=== PATIENT | female | born 1975 | race Caucasian/White ===

== ENCOUNTER 2018-08-16 12:45 | Emergency (ER) | payer BC, SELFPAY ==
[2018-08-16 12:57] VITALS: BP 154/94; PULSE 85; RESP 18; TEMP 37.2; O2SAT 99
--- NOTE | 2018-08-16 14:14 | W.ED.GENAD ---
Discharge Plan Disposition Patient Disposition: HOME Condition: Good Discharge Details Chief Complaint: RespSymp Clinical Impression: URI (upper respiratory infection) Primary Care Provider: NONE,NONE ED Provider: Amador Haji Home Meds and New Rx's Prescriptions: No Action ibuprofen 200 MG capsule 200 mg PO Q4H PRN RF: 0 Discharge Instructions Instructions: Upper Respiratory Infection (ED) Stand Alone Forms: Work Release Referrals: [facility] Emergency Dept. [Outside] - Return if symptoms worsen Discharge Data Discharge Date/Time-TO BE ENTERED AT DEPARTURE: 08/16/18 14:24 Medical Decision Making With normal exam and current symptoms my initial impression is she has early URI. i explained this and she decided against chest x-ray at this time. She plans to treat conservatively. If symptoms worsen she will return for evaluation otherwise with pcp. I advised to get plenty of rest and fluids. Work note provided. HPI General Date/Time Provider Initiated Documentation: 08/16/18 14:09. Limitations to Documentation: no limitations. Information obtained by: patient. History of Present Illness 43 year old F presents to the emergency department with the chief complaint of URI, HPI Narrative: 43 y/o female here with c/o cold symptoms for two days. She tells me for the last two days days she has been sneezing, coughing with worsening right ear pain. Declined x-ray. Related Data Home Medications Medication Instructions Recorded Confirmed ibuprofen 200 mg PO Q4H PRN tab-cap 05/19/13 08/16/18 Allergies Allergy/AdvReac Type Severity Reaction Status Date / Time laundry soap Allergy Skin Rash Uncoded 08/16/18 13:00 mushrooms Allergy Skin Rash Uncoded 08/16/18 13:00 hot pepers AdvReac Mild Nausea Uncoded 08/16/18 13:00 General Stated Complaint: RespSymp MAYA: 3 Review of Systems Constitutional Reports as per HPI Eyes Reports system reviewed and no additional complaints, except as docu ENT Reports otalgia (R) Cardiovascular Reports system reviewed and no additional complaints, except as docu Respiratory Reports cough and Reports other (sneezing) Gastrointestinal Reports system reviewed and no additional complaints, except as docu Genitourinary Reports system reviewed and no additional complaints, except as docu Musculoskeletal Reports system reviewed and no additional complaints, except as docu Integumentary/Breasts Reports system reviewed and no additional complaints, except as docu PFSH Social History Smoking/Tobacco Use Status: Never Exam Const General: cooperative and no acute distress Nutritional Appearance: obese HENMT Head: normal to inspection Ears: hearing grossly normal bilaterally, external ears normal and TM's normal bilaterally General nose exam: external nose normal and nares normal Face and sinus: normal facial exam Mouth: oral mucosae normal, lip normal, tongue normal, oropharynx normal and moist mucous membranes Throat: posterior oropharynx normal Eyes General: appearance normal, both eyes and all related structures Neck Neck: normal visual inspection, full ROM and no lymphadenopathy Resp Effort & Inspection: normal respiratory effort Auscultation: clear to auscultation bilaterally Cardio Rate: regular rate Rhythm: regular rhythm Skin General skin exam: no rashes or lesions noted Course Vital Signs Temperature 37.2 C 08/16/18 12:57 Pulse 85 08/16/18 12:57 Respiratory Rate 18 08/16/18 12:57 Blood Pressure 154/94 H 08/16/18 12:57 Pulse Oximetry 99 08/16/18 12:57 Temperature 37.2 C 08/16/18 12:57 Temperature Source Temporal Artery Scan 08/16/18 12:57 Pulse 85 08/16/18 12:57 Respiratory Rate 18 08/16/18 12:57 Respiratory Effort 08/16/18 12:57 Blood Pressure 154/94 H 08/16/18 12:57 Pulse Oximetry 99 08/16/18 12:57 Oxygen Delivery Method Room Air 08/16/18 12:57 Oxygen Flow Rate 0 08/16/18 12:57
--- NOTE | 2018-08-16 14:19 | ED.GENADUL_ITS ---
Discharge Plan Disposition Patient Disposition: HOME Condition: Good Discharge Details Chief Complaint: RespSymp Clinical Impression: URI (upper respiratory infection) Primary Care Provider: NONE,NONE ED Provider: Amador Haji Home Meds and New Rx's Prescriptions: No Action ibuprofen 200 MG capsule 200 mg PO Q4H PRN RF: 0 Discharge Instructions Instructions: Upper Respiratory Infection (ED) Stand Alone Forms: Work Release Referrals: [facility] Emergency Dept. [Outside] - Return if symptoms worsen Discharge Data Discharge Date/Time-TO BE ENTERED AT DEPARTURE: 08/16/18 14:24 Medical Decision Making With normal exam and current symptoms my initial impression is she has early URI. i explained this and she decided against chest x-ray at this time. She plans to treat conservatively. If symptoms worsen she will return for evaluation otherwise with pcp. I advised to get plenty of rest and fluids. Work note provided. HPI General Date/Time Provider Initiated Documentation: 08/16/18 14:09 . Limitations to Documentation: no limitations . Information obtained by: patient . History of Present Illness 43 year old F presents to the emergency department with the chief complaint of URI, HPI Narrative: 43 y/o female here with c/o cold symptoms for two days. She tells me for the last two days days she has been sneezing, coughing with worsening right ear pain. Declined x-ray. Related Data Home Medications Medication Instructions Recorded Confirmed ibuprofen 200 mg PO Q4H PRN tab-cap 05/19/13 08/16/18 Allergies Allergy/AdvReac Type Severity Reaction Status Date / Time laundry soap Allergy Skin Rash Uncoded 08/16/18 13:00 mushrooms Allergy Skin Rash Uncoded 08/16/18 13:00 hot pepers AdvReac Mild Nausea Uncoded 08/16/18 13:00 General Stated Complaint: RespSymp MAYA: 3 Review of Systems Constitutional Reports as per HPI Eyes Reports system reviewed and no additional complaints, except as docu ENT Reports otalgia (R) Cardiovascular Reports system reviewed and no additional complaints, except as docu Respiratory Reports cough and Reports other (sneezing) Gastrointestinal Reports system reviewed and no additional complaints, except as docu Genitourinary Reports system reviewed and no additional complaints, except as docu Musculoskeletal Reports system reviewed and no additional complaints, except as docu Integumentary/Breasts Reports system reviewed and no additional complaints, except as docu PFSH Social History Smoking/Tobacco Use Status: Never Exam Const General: cooperative and no acute distress Nutritional Appearance: obese HENMT Head: normal to inspection Ears: hearing grossly normal bilaterally, external ears normal and TM's normal bilaterally General nose exam: external nose normal and nares normal Face and sinus: normal facial exam Mouth: oral mucosae normal, lip normal, tongue normal, oropharynx normal and moist mucous membranes Throat: posterior oropharynx normal Eyes General: appearance normal, both eyes and all related structures Neck Neck: normal visual inspection, full ROM and no lymphadenopathy Resp Effort & Inspection: normal respiratory effort Auscultation: clear to auscultation bilaterally Cardio Rate: regular rate Rhythm: regular rhythm Skin General skin exam: no rashes or lesions noted Course Vital Signs Temperature 37.2 C 08/16/18 12:57 Pulse 85 08/16/18 12:57 Respiratory Rate 18 08/16/18 12:57 Blood Pressure 154/94 H 08/16/18 12:57 Pulse Oximetry 99 08/16/18 12:57 Temperature 37.2 C 08/16/18 12:57 Temperature Source Temporal Artery Scan 08/16/18 12:57 Pulse 85 08/16/18 12:57 Respiratory Rate 18 08/16/18 12:57 Respiratory Effort 08/16/18 12:57 Blood Pressure 154/94 H 08/16/18 12:57 Pulse Oximetry 99 08/16/18 12:57 Oxygen Delivery Method Room Air 08/16/18 12:57 Oxygen Flow Rate 0 08/16/18 12:57
== END 2018-08-16 14:24 | disposition home or self-care (01) ==
LOC: ER 14:25
PROVIDERS: Emergency Provider Nurse Practitioner Family
DX: J06.9 Acute upper respiratory infection, unspecified (principal)
CPT/HCPCS: 99282

== ENCOUNTER 2018-10-23 11:53 | Emergency (ER) | payer BC, SELFPAY ==
[2018-10-23 11:58] VITALS: BP 154/85; PULSE 83; RESP 15; TEMP 36.4; O2SAT 100
[2018-10-23 12:19] LABS: Bilirubin Negative (Negative); Blood Small (Negative); Clarity Clear; Glucose Negative (Negative); Ketones Negative (Negative); Leukocyte Esterase Negative (Negative); Nitrite Negative (Negative); Specific Gravity 1.025 (1.005-1.025); Urobilinogen 0.2 EU/dL (Up TO 0.2); pH 5.5 (5-8)
--- NOTE | 2018-10-23 12:32 | ED.GENADUL_ITS ---
Discharge Plan Disposition Patient Disposition: HOME Condition: Stable Discharge Details Chief Complaint: FlankPain Clinical Impression: Acute flank pain, Anemia Primary Care Provider: None,None ED Provider: Rosa Tello Home Meds and New Rx's Prescriptions: New polyethylene glycol 3350 [Miralax] 17 gram powder in packet 17 gm PO DAILY Qty: 7 RF: 0 ferrous sulfate [Iron (ferrous sulfate)] 325 mg (65 mg iron) tablet 325 mg PO DAILY Qty: 30 RF: 0 Continued ibuprofen 200 MG capsule 600 mg PO Q4H PRN RF: 0 Discharge Instructions Instructions: Iron Supplements (By mouth), Constipation (ED), Flank Pain (ED), Anemia (ED) Additional Instructions: Please return immediately to the emergency department if you develop any new or worsening symptoms or if you become otherwise concerned. It is extremely important that you make an appointment to seen by a primary care doctor within the next 1 week in follow-up for this visit. If you have any difficulty establishing this appointment please call [phone] Discharge Data Discharge Date/Time-TO BE ENTERED AT DEPARTURE: 10/23/18 16:45 Medical Decision Making Dalila Banegas is a 43 y/o woman with h/o kidney stones presenting to the emergency department with right flank pain. Pt appears comfortable, well and non-toxic appearing on exam. No abd or CVA TTP. Concern for renal stone vs pyelo vs other. Plan for screening labs, renal US. Pt declines pain meds. US reported by radiology as neg. Upon reassessment, Pt reporting pain somewhat worsened. Declines pain meds. Pt continues to look well, comfortable. Labs show anemia. Pt denies dark stool or melena, other bleeding. Denies SOB, lightheadedness, weakness, fatigue. Unclear etiology. No transfusion indicated at this time. I had a lengthy discussion with the re: definitive testing for renal stone with CT, risk of radiation and benefits. Pt is concerned that she may have a stone and would like to know, elects for CT. Given very well and comfortable appaerance and without abd pain, TTP, CT with IV contrast for r/o infarct, infection, other not indicated. CT reported by radiology as neg, large of stool in rectum. Pt reports that she is not having rectal pain, and has not felt constipated. Last BM this am. Plan for iron supplements, miralax, outpt f/u. Pt placed on care management list to establish PCP. Lengthy discussion with Pt re: RTED precautions and importance of outpt f/u. Medical Records Medical records reviewed: Yes I reviewed the patient's medical records. Imaging Data Radiologic Study: Attestation: I personally reviewed and interpreted this imaging study as follows: Radiologist's impression: ABDOMINAL AND RENAL ULTRASOUND: Routine examination. The aorta and IVC are unremarkable. The liver, gallbladder and bile ducts are unremarkable. The pancreas was not visualized due to overlying bowel. The kidneys are unremarkable. The urinary bladder prevoid volume is 122 cc. The bladder wall is smooth. No intraluminal masses are present. Postvoid urinary bladder volume was less than 5 cc. The spleen is unremarkable. No free fluid is seen in the abdomen. IMPRESSION: Negative abdominal and renal ultrasound. Lab Data Lab results reviewed: Yes I reviewed the patient's lab results. Laboratory Tests Range/Units 10/23/18 10/23/18 10/23/18 12:10 12:50 12:50 WBC (4.4-10.8) k/cumm 5.43 RBC (4.00-5.20) m/cumm 4.14 Hgb (12.0-15.5) g/dL 7.8 L Hct (36.0-46.0) % 28.9 L MCV (80-95) fL 69.8 L MCH (27.0-33.0) pg 18.8 L MCHC (32.0-36.0) g/dL 27.0 L RDW (11.7-14.6) % 16.6 H Plt Count (130-400) x1000/uL 376 MPV (8.0-11.0) fL 10.4 Immature Gran % 0.0 Neutrophils % 47.9 Lymphocytes % 39.0 Monocytes % 9.2 Eosinophils % 2.8 Basophils % 1.1 Absolute Neutrophils (1.2-6.7) k/cumm 2.60 Absolute Lymphocytes (1.2-3.4) k/cumm 2.12 Absolute Monocytes (0.11-0.7) k/cumm 0.50 Absolute Eosinophils (0.0-0.7) k/cumm 0.15 Absolute Basophils (0.0-0.2) k/cumm 0.06 Differential Comment Rbc morph reviewed RBC Morphology See below Polychromasia Present Hypochromasia 2+ Poikilocytosis 2+ Anisocytosis 1+ Microcytosis 2+ Sodium (136-145) mmol/L 141 Potassium (3.5-5.1) mmol/L 4.0 Chloride (98-107) mmol/L 105 Carbon Dioxide (21.0-32.0) mmol/L 28.3 Anion Gap (3-11) mmol/L 7.7 BUN (7-18) mg/dL 17 Creatinine (0.55-1.02) mg/dL 0.91 Estimated GFR/1.73 m2 (mL/min/1.73m2) >= 60.00 Glucose (70-100) mg/dL 88 Calcium (8.5-10.1) mg/dL 8.8 Total Bilirubin (0.2-1.0) mg/dL 0.2 AST (15-37) U/L 16 ALT (12-78) U/L 16 Alkaline Phosphatase (46-116) U/L 79 Total Protein (6.4-8.2) g/dL 8.2 Albumin (3.4-5.0) g/dL 3.4 Urine Color (Yellow) Yellow Urine Clarity Clear Urine pH (5-8) 5.5 Ur Specific [place] (1.005-1.025) 1.025 Urine Protein (Negative) mg/dL Negative Urine Ketones (Negative) mg/dL Negative Urine Blood (Negative) Small H Urine Nitrite (Negative) Negative Urine Bilirubin (Negative) Negative Urine Urobilinogen (Up TO 0.2) EU/dL 0.2 Ur Leukocyte Esterase (Negative) Negative Urine RBC (0-2) 3-5 H Urine WBC (0-5) HPF Negative Ur Epithelial Cells (Negative) HPF Many Urine Crystals (Negative) HPF Negative Urine Bacteria (Negative) HPF Few Urine Casts (Negative) LPF Negative Urine Mucus (Negative) Negative Urine Other (Negative) Negative Ur Culture Indicated? No/sq. contamination Urine Glucose (Negative) mg/dL Negative Path Cons Comment HPI General Mode of arrival: ambulatory . Date/Time Provider Initiated Documentation: 10/23/18 12:31 . Information obtained by: patient, RN notes reviewed and old records reviewed . HPI Narrative: Dalila Banegas is a 43-year-old woman with history of kidney stones presenting to the emergency department with right-sided flank pain. Pain has been ongoing for the last 2-3 days. Has been constant but waxing and waning in severity. Patient reports that she has had similar pain in the past with kidney stones, and has had 13 previous kidney stones. Patient reports that she has passed all of the stones without procedural intervention. She denies any other pain, fever, vomiting/diarrhea, shortness of breath, cough, rash, numbness/tingling/weakness, dysuria. No recent travel. Related Data Home Medications Medication Instructions Recorded Confirmed ibuprofen 600 mg PO Q4H PRN tab-cap 05/19/13 10/23/18 ferrous sulfate [Iron (ferrous 325 mg PO DAILY #30 tab 10/23/18 sulfate)] polyethylene glycol 3350 [Miralax] 17 gm PO DAILY #7 each 10/23/18 Previous Rx's Medication Instructions Recorded ferrous sulfate [Iron (ferrous 325 mg PO DAILY #30 tab 10/23/18 sulfate)] polyethylene glycol 3350 [Miralax] 17 gm PO DAILY #7 each 10/23/18 Allergies Allergy/AdvReac Type Severity Reaction Status Date / Time laundry soap Allergy Skin Rash Uncoded 10/23/18 12:04 mushrooms Allergy Skin Rash Uncoded 10/23/18 12:04 hot pepers AdvReac Mild Nausea Uncoded 10/23/18 12:04 General Stated Complaint: FlankPain MAYA: 3 Review of Systems Review of Systems Constitutional: denies fevers Eyes: denies eye pain ENT: denies facial pain, dental pain, sore throat Cardiovascular: denies chest pain, edema Respiratory: denies SOB, cough GI: denies abdominal pain, vomiting, diarrhea : reports flank pain, denies dysuria MSK: denies back pain, neck pain, arthralgias, myalgias Skin: denies rash Neuro: denies headaches, lightheadedness, weakness PFSH Social History Smoking/Tobacco Use Status: Never Exam Narrative Exam Narrative: Constitutional: well and [id number], pleasant, conversing normally HENT: head atraumatic, normocephalic normal inspection, mucous membranes moist Eyes: conjunctiva normal, sclera normal, pupils 3mm b/l Neck: no stridor, normal ROM, trachea midline Chest: normal inspection Resp: normal work of breathing, LCTAB Cardio: normal rate, normal rhythm, no murmur appreciated GI: abdomen soft, non-tender, non-distended, no CVA TTP b/l Back: normal inspection, no rash Skin: warm, dry, normal color, no rash Neuro: alert, not altered, grossly non-focal, normal tone Ext: no edema Psych: normal mood, normal affect, normal behavior Course Vital Signs Temperature 36.4 C L 10/23/18 11:58 Pulse 83 10/23/18 11:58 Respiratory Rate 15 10/23/18 11:58 Blood Pressure 154/85 H 10/23/18 11:58 Pulse Oximetry 100 10/23/18 11:58 Temperature 36.4 C L 10/23/18 11:58 Temperature Source Temporal Artery Scan 10/23/18 11:58 Pulse 83 10/23/18 11:58 Respiratory Rate 15 10/23/18 11:58 Respiratory Effort Non-Labored 10/23/18 12:03 Blood Pressure 154/85 H 10/23/18 11:58 Blood Pressure Position Sitting 10/23/18 11:58 Pulse Oximetry 100 10/23/18 11:58 Oxygen Delivery Method Room Air 10/23/18 11:58 Oxygen Flow Rate 0 10/23/18 11:58 Pain Level 5 10/23/18 12:05 Lab/Test Results Lab/Test Results: Laboratory Tests Range/Units 10/23/18 12:10 Urine Color (Yellow) Yellow Urine Clarity Clear Urine pH (5-8) 5.5 Ur Specific [place] (1.005-1.025) 1.025 Urine Protein (Negative) mg/dL Negative Urine Ketones (Negative) mg/dL Negative Urine Blood (Negative) Small H Urine Nitrite (Negative) Negative Urine Bilirubin (Negative) Negative Urine Urobilinogen (Up TO 0.2) EU/dL 0.2 Ur Leukocyte Esterase (Negative) Negative Urine Glucose (Negative) mg/dL Negative POC- Test(urine) Negative
[2018-10-23 12:33] LABS: Bacteria Few HPF (Negative); C & S Indicated? No/Sq. Contamination; Casts Negative LPF (Negative); Crystals Negative HPF (Negative); Epithelial Cells Many HPF (Negative); Mucus Negative (Negative); Other Cells Negative (Negative); WBC Negative HPF (0-5)
--- NOTE | 2018-10-23 13:20 | DI.US_ITS ---
SYMPTOMS/DIAGNOSIS: RIGHT FLANK PAIN, H/O KIDNEY STONES ABDOMINAL AND RENAL ULTRASOUND: Routine examination. The aorta and IVC are unremarkable. The liver, gallbladder and bile ducts are unremarkable. The pancreas was not visualized due to overlying bowel. The kidneys are unremarkable. The urinary bladder prevoid volume is 122 cc. The bladder wall is smooth. No intraluminal masses are present. Postvoid urinary bladder volume was less than 5 cc. The spleen is unremarkable. No free fluid is seen in the abdomen. IMPRESSION: Negative abdominal and renal ultrasound.
[2018-10-23 13:27] LABS: Absolute Basophil Count 0.06 k/cumm (0.0-0.2); Absolute Eosinophil Count 0.15 k/cumm (0.0-0.7); Absolute Lymphocyte Count 2.12 k/cumm (1.2-3.4); Basophils % 1.1; Eosinophils % 2.8; HCT 28.9 % (36.0-46.0); HGB 7.8 g/dL (12.0-15.5); Mean Corpuscular Hemoglobin 18.8 pg (27.0-33.0); Mean Corpuscular Volume 69.8 fL (80-95); Mean Platelet Volume 10.4 fL (8.0-11.0); Monocytes % 9.2; Neutrophils % 47.9; Platelet Count 376 x1000/uL (130-400); RBC 4.14 m/cumm (4.00-5.20); RBC Distribution Width 16.6 % (11.7-14.6); White Blood Cell Count 5.43 k/cumm (4.4-10.8)
[2018-10-23 13:43] LABS: ALT 16 U/L (12-78); AST 16 U/L (15-37); Albumin 3.4 g/dL (3.4-5.0); Alkaline Phosphatase 79 U/L (46-116); Anion Gap 7.7 mmol/L (3-11); BUN 17 mg/dL (7-18); Bilirubin, Total 0.2 mg/dL (0.2-1.0); CO2 28.3 mmol/L (21.0-32.0); CREATININE 0.91 mg/dL (0.55-1.02); Calcium 8.8 mg/dL (8.5-10.1); Chloride 105 mmol/L (98-107); Glucose 88 mg/dL (70-100); Sodium 141 mmol/L (136-145); Total Protein 8.2 g/dL (6.4-8.2)
[2018-10-23 13:53] LABS: Anisocytosis 1+; Diff Comment RBC Morph Reviewed; Hypochromasia 2+
[2018-10-23 13:54] LABS: Microcytosis 2+; Polychromasia Present
[2018-10-23 13:55] LABS: Poikilocytes 2+
[2018-10-23 15:27] VITALS: BP 136/83; PULSE 76; RESP 16; O2SAT 100
--- NOTE | 2018-10-23 15:34 | DI.CT_ITS ---
SYMPTOM/DIAGNOSIS: RT FLANK PAIN ABDOMEN AND PELVIC CT: CT scan of the abdomen and pelvis was performed according to the renal colic protocol. Comparison is made with 04/25/18. The visualized lung bases are clear. The lack of IV contrast does limit evaluation of the abdominal and pelvic organs. The unenhanced visualized portions of the liver, spleen, pancreas, gallbladder and bile ducts are unremarkable as are the adrenal glands. There is bilateral nephrolithiasis. No ureterolithiasis or hydronephrosis is seen. The urinary bladder is intact. The reproductive organs appear grossly unremarkable. The aorta is of normal caliber with mild atherosclerosis. No aneurysmal dilatation is seen. No significant abdominal or pelvic adenopathy, ascites or pneumoperitoneum is seen. There is a large amount of stool seen in the colon, particularly in the rectum. There is a question of mild thickening of the wall of the rectum. No evidence of bowel obstruction is seen. No findings to suggest acute appendicitis are present. No acute findings are seen in the bones. IMPRESSION: 1. Bilateral nephrolithiasis. No evidence of obstructive uropathy. 2. Large amount of stool in the colon, particularly the rectum suggesting possible fecal impaction. Stercoral colitis cannot be excluded.
--- NOTE | 2018-10-23 16:07 | DI.VRAD_ITS ---
EXAM: CT Abdomen and Pelvis Without Contrast EXAM DATE/TIME: 10/23/2018 3:57 PM CLINICAL HISTORY: 43 years old, female; Pain; Other: R flank pain TECHNIQUE: Axial computed tomography images of the abdomen and pelvis without contrast. Coronal and sagittal reformatted images were created and reviewed. COMPARISON: CT RENAL COLIC WO CONTRAST 04/25/2018 5:53 PM FINDINGS: Lower thorax: No acute findings. ABDOMEN: Liver: Incompletely included. Steatosis. Gallbladder and bile ducts: Normal. No calcified stones. No ductal dilation. Pancreas: Normal. No ductal dilation. Spleen: Normal. No splenomegaly. Adrenals: Normal. No mass. Kidneys and ureters: Bilateral renal calculi, no hydronephrosis or perinephric edema. Stomach and bowel: Moderate to large amount of fecal material in the rectum, no rectal wall thickening, or presacral edema. No obstruction.. Appendix: No evidence of appendicitis. PELVIS: Bladder: Unremarkable as visualized. Reproductive: Unremarkable as visualized. ABDOMEN and PELVIS: Intraperitoneal space: Normal. No free air. No significant fluid collection. Bones/joints: No acute fracture. No dislocation. Soft tissues: Unremarkable. Vasculature: Normal. No abdominal aortic aneurysm. Lymph nodes: Normal. No enlarged lymph nodes. IMPRESSION: Bilateral nephrolithiasis. Possible fecal impaction. Dictated and Authenticated by: Evangelist Morales MD. Ordering:ALISSA Lee MD
[2018-10-23 16:45] VITALS: BP 154/99; PULSE 85; RESP 16; O2SAT 100
--- NOTE | 2018-10-26 07:45 | PDOC.ERCMPRO ---
Care Management Progress Note 10/26-Dr. Brianna Tello requested assistance with a PCP (Patient has no PCP, [employer]) in one week for anemia and to establish care. Referral faxed to [facility] this morning.
== END 2018-10-23 16:45 | disposition home or self-care (01) ==
PROVIDERS: Emergency Provider Student in an Organized Health Care Education/Training Program
DX: R10.9 Unspecified abdominal pain (principal); D64.4 Congenital dyserythropoietic anemia; Z87.442 Personal history of urinary calculi
CPT/HCPCS: 36415; 76770; 80053; 81025; 99284; 74176; 76700; 81003; 81015; 85025

== ENCOUNTER 2018-11-29 20:06 | Emergency (ER) | payer BC, SELFPAY ==
[2018-11-29 20:21] VITALS: BP 174/93; PULSE 90; RESP 17; TEMP 36.3
--- NOTE | 2018-11-29 20:24 | W.ED.GENAD ---
Discharge Plan Disposition Patient Disposition: HOME Condition: Good Discharge Details Chief Complaint: FlankPain Clinical Impression: Urolithiasis Reason For Visit: left flank pain Primary Care Provider: None,None ED Provider: Yasir Shirley Home Meds and New Rx's Prescriptions: New acetaminophen [Mapap Extra Strength] 500 MG tablet 1,000 mg PO Q6H 5 Days Qty: 60 RF: 0 ibuprofen [Motrin IB] 200 MG tablet 600 mg PO Q6H 5 Days Qty: 60 RF: 0 tamsulosin [Flomax] 0.4 mg capsule 0.4 mg PO DAILY Qty: 5 RF: 0 cephalexin [Keflex] 500 mg capsule 500 mg PO QID 7 Days Qty: 28 RF: 0 No Action ibuprofen 200 MG capsule 600 mg PO Q4H PRN RF: 0 ferrous sulfate [Iron (ferrous sulfate)] 325 mg (65 mg iron) tablet 325 mg PO DAILY Qty: 30 RF: 0 Discharge Instructions Instructions: Kidney Stones (ED) Additional Instructions: Please take the medication as directed. If you notice any worsening of your symptoms, or any new symptoms such as vomiting, diarrhea, fever, chills, shortness of breath, chest pain, numbness, weakness, or fainting , please return immediately to the emergency department for reevaluation. Please follow up with tomorrow morning for reassessment and reevaluation. As always, it was a pleasure participating in your medical care today. Referrals: Jamari Alva MD [ [facility] STAFF PHYSICIAN] - Medical Decision Making This is a pleasant 43-year-old female comes in with left flank pain that started 2 hours ago she has associated urgency, her pain radiates to her groin she describes it as sharp. Signs and symptoms are concerning for urolithiasis. She was recently seen here a month ago, at that time there was noted to be bilateral kidney stones on CT scan. We will get a CT to reevaluate, control her pain, hydrate, evaluate for infection reassess. 10:54 PM The patient has complete resolution of her pain after NSAIDs and morphine. Laboratory workup shows no elevated white count, no significant left shift, no bandemia. Electrolytes are normal, renal function is stable. Lipase is negative. Urinalysis shows no signs of infection with negative nitrites and negative leuk esterase, 10-20 RBCs and an appropriate 5-10 WBCs. Many squamous epithelial cells. CT scan results have returned and demonstrate evidence of an obstructing 5.8 mm stone in the left distal ureter, however there is some inflammatory changes around the ureter in the left kidney which per the virtual radiologist could represent infectious etiology. I feel this both unlikely and clinically inconsistent with the patient's current clinical picture. I did contact Dr. Alva on discussed the case with him. He too feels that infection is unlikely based on the clinical picture. However because of the findings he does recommend antibiotics out of an abundance of precaution. We will give Rocephin here and then Keflex for home use, as well as close follow-up tomorrow morning with Dr. Alva. I have extensively reviewed the treatment plan and discharge instructions with the patient and their family. I have addressed all patient concerns at this time. The patient and family was made aware of what symptoms to monitor for that would warrant a return to the emergency department. Discussed the plan with the patient and family, they demonstrate verbal understanding and agreement with our assessment and plan at this time. FINDINGS: Lower thorax: No acute findings. ABDOMEN: Liver: Liver is stably enlarged measuring 23 cm. No acute liver pathology or gross focal lesions identified. Gallbladder and bile ducts: Normal. No calcified stones. No ductal dilation. Pancreas: Normal. No ductal dilation. Spleen: Normal. No splenomegaly. Adrenals: Normal. No mass. Kidneys and ureters: There is a 5.5 mm x 5.8 mm stone impacted in the distal left ureter causing stranding. There is also a small amount of left perirenal free fluid suggested, raising concern for possible calyceal rupture. Bilateral nephrolithiasis is again seen, stable. No evidence of right obstructive uropathy. Stomach and bowel: There is new wall thickening of the rectum and distal sigmoid. No other areas of segmental wall thickening are appreciated. No bowel obstruction. There is a large amount of fecal material in the rectal vault, however it has significantly improved from the reference exam. Appendix: No evidence of appendicitis. PELVIS: Bladder: Unremarkable as visualized. Reproductive: Unremarkable as visualized. ABDOMEN and PELVIS: Intraperitoneal space: Normal. No free air. No significant fluid collection. Bones/joints: No acute fracture. No dislocation. Soft tissues: Unremarkable. Vasculature: The vasculature demonstrates diffuse mild atherosclerotic calcification. Lymph nodes: Normal. No enlarged lymph nodes. IMPRESSION: 1. Moderate left obstructive uropathy caused by a 5.8 mm stone impacted in the distal left ureter. There is extensive inflammatory change surrounding the left ureter and left kidney, in which superimposed infection is difficult to exclude. There is also small amount of free fluid in the left perirenal space in which calyceal rupture is a possibility. 2. Stable bilateral nephrolithiasis. 3. New wall thickening of the rectum and distal sigmoid with improvement of prior rectal fecal impaction. Findings may be related to acute versus residual rectitis/sigmoiditis, most likely related to stercoral etiology although infectious/inflammatory process is not excluded. 4. Other stable/incidental findings as detailed above Thank you for allowing us to participate in the care of your patient. Dictated and Authenticated by: Dominic Gaines MD [facility] General Date/Time Provider Initiated Documentation: 11/29/18 20:07. [facility] Narrative: This is a pleasant 43-year-old female with no significant past medical history who presents today for evaluation of left flank pain. The pain started 2 hours ago, it started in her left back/flank, and now radiates towards her groin. She has an increased sense of urgency, but denies any dysuria, or hematuria. She has vomited twice secondary to pain. The second time she vomited was just after she took some ibuprofen for pain control. She vomited the pills back up. She denies any constipation, diarrhea, hematochezia, hematemesis, melena, acholic stool. She denies any fever. She denies any chest pain, leg pain, or vaginal discharge. No other complaints modifying factors at this time. Past surgical history is positive for . She denies any IV illicit drug use or pertinent family history. Related Data Home Medications Medication Instructions Recorded Confirmed ibuprofen 600 mg PO Q4H PRN tab-cap 05/19/13 11/29/18 ferrous sulfate [Iron (ferrous 325 mg PO DAILY #30 tab 10/23/18 sulfate)] acetaminophen [Mapap Extra 1,000 mg PO Q6H 5 Days #60 tab 11/29/18 Strength] cephalexin [Keflex] 500 mg PO QID 7 Days #28 cap 11/29/18 ibuprofen [Motrin Ib] 600 mg PO Q6H 5 Days #60 tab 11/29/18 tamsulosin [Flomax] 0.4 mg PO DAILY #5 cap 11/29/18 Previous Rx's Medication Instructions Recorded ferrous sulfate [Iron (ferrous 325 mg PO DAILY #30 tab 10/23/18 sulfate)] acetaminophen [Mapap Extra 1,000 mg PO Q6H 5 Days #60 tab 11/29/18 Strength] cephalexin [Keflex] 500 mg PO QID 7 Days #28 cap 11/29/18 ibuprofen [Motrin Ib] 600 mg PO Q6H 5 Days #60 tab 11/29/18 tamsulosin [Flomax] 0.4 mg PO DAILY #5 cap 11/29/18 Allergies Allergy/AdvReac Type Severity Reaction Status Date / Time laundry soap Allergy Skin Rash Uncoded 11/29/18 21:11 mushrooms Allergy Skin Rash Uncoded 11/29/18 21:11 hot pepers AdvReac Mild Nausea Uncoded 11/29/18 21:11 General MAYA: 3 Review of Systems Review of Systems All systems reviewed & are unremarkable except as noted in HPI and below PFSH Social History Smoking and Tabacco status: Never Exam Narrative Exam Narrative: 1.Const: Well-nourished, Well-developed, appearing stated age 2.Eyes: PERRL, no conjunctival injection, and symmetrical lids. 3.ENT: Atraumatic external nose and ears. Moist MM. Neck: Symmetric, trachea midline, No thyromegaly. 4.CVS: +S1/S2, No murmurs or gallops. Peripheral pulses 2+ and equal in all extremities. Brisk capillary refill in all extremities. 5.RESP: Unlabored respiratory effort. Clear to auscultation bilaterally. No wheezes rales or rhonchi 6.GI: Soft, Nontender/Nondistended, No hepatosplenomegaly. No guarding or rebound. Patient demonstrates left-sided flank pain on percussion. No abdominal tenderness on palpation. Mild pressure over the bladder. No signs of an acute surgical abdomen. 7.MSK: Normocephalic/Atraumatic, Extremities w/o deformity or ttp No cyanosis or clubbing, Normal movement of all extremities 8.Skin: Warm, Dry. No rashes or lesions. 9.Neuro: creative consultant II-XII grossly intact. Sensation grossly intact, no focal neurologic deficits. 10.Psych: (AAO) x3. Appropriate mood and affect
[2018-11-29] MEDS: Normal Saline 1,000 ML 1000 ML IV (20:50)
[2018-11-29] MEDS: Ketorolac 30 MG/ML VIAL 15 MG IVP (21:01)
[2018-11-29] MEDS: Ondansetron 4 MG/2 ML VIAL IVP (21:02)
[2018-11-29] MEDS: MORPHine 10 MG/ML VIAL 4 MG IVP (21:08)
[2018-11-29 21:11] LABS: Abs Immature Grans 0.03 k/cumm (0.0-0.09); HCT 32.8 % (36.0-46.0); Mean Corp. HGB Concentration 27.4 g/dL (32.0-36.0); Mean Corpuscular Hemoglobin 20.5 pg (27.0-33.0); Mean Corpuscular Volume 74.9 fL (80-95); Mean Platelet Volume 9.9 fL (8.0-11.0); Platelet Count 252 x1000/uL (130-400); RBC 4.38 m/cumm (4.00-5.20); RBC Distribution Width 20.8 % (11.7-14.6)
[2018-11-29 21:23] LABS: ALT 18 U/L (12-78); AST 19 U/L (15-37); Albumin 3.3 g/dL (3.4-5.0); Alkaline Phosphatase 79 U/L (46-116); Anion Gap 7.8 mmol/L (3-11); BUN 16 mg/dL (7-18); Bilirubin, Total 0.2 mg/dL (0.2-1.0); CO2 29.2 mmol/L (21.0-32.0); CREATININE 1.18 mg/dL (0.55-1.02); Calcium 8.7 mg/dL (8.5-10.1); Chloride 105 mmol/L (98-107); Estimated GFR 49.99 (mL/min/1.73m2); Glucose 129 mg/dL (70-100); Lipase 110 U/L (73-393); Potassium 3.7 mmol/L (3.5-5.1); Sodium 142 mmol/L (136-145); Total Protein 8.2 g/dL (6.4-8.2)
[2018-11-29 21:33] LABS: Absolute Lymphocyte Count 2.32 k/cumm (1.2-3.4); Absolute Monocyte Count 0.81 k/cumm (0.11-0.7); Absolute Neutrophil Count 6.87 k/cumm (1.2-6.7)
[2018-11-29 21:34] LABS: Anisocytosis 2+; Diff Comment Manual Differential; Hypochromasia 2+; Microcytosis 3+
[2018-11-29 21:35] LABS: Poikilocytes 2+
--- NOTE | 2018-11-29 21:35 | DI.CT_ITS ---
SYMPTOM/DIAGNOSIS: LEFT FLANK PAIN, H/O STONES RENAL COLIC CT: Comparison is 10/23/18. No acute abnormality seen in the lung bases. Unenhanced visualized portions of the liver, spleen, pancreas, gallbladder, bile ducts and adrenal glands are unremarkable. There is a 6 mm stone at the left ureteral vesicular junction causing moderate hydronephrosis. There is fluid seen around the left kidney which may represent calyceal rupture. There are bilateral nonobstructing stones. The urinary bladder is intact. The reproductive organs are unremarkable. The bowel shows no evidence of obstruction. There is thickening of the wall of the rectum and the distal sigmoid colon which may represent a mild proctitis/colitis. The remainder of the bowel is unremarkable. The aorta is of normal caliber. No significant abdominal or pelvic adenopathy, ascites or pneumoperitoneum is seen. No acute abnormality is seen in the bones. IMPRESSION: 1. 6 mm left UVJ calculus causing moderate hydronephrosis 2. Bilateral nephrolithiasis 3. Thickening of the wall of the rectum and distal sigmoid colon which may represent proctitis/sigmoiditis.
[2018-11-29 21:37] VITALS: BP 122/79; PULSE 88; RESP 18; TEMP 36.7; O2SAT 94
[2018-11-29] MEDS: Acetaminophen 500 MG TAB 1000 MG PO (21:37)
[2018-11-29 21:39] LABS: Bilirubin Negative (Negative); Blood Moderate (Negative); Clarity Sl Cloudy; Glucose Negative (Negative); Ketones Trace mg/dL (Negative); Leukocyte Esterase Negative (Negative); Nitrite Negative (Negative); Specific Gravity 1.025 (1.005-1.025); Urobilinogen 0.2 EU/dL (Up TO 0.2)
[2018-11-29 22:00] LABS: Bacteria Rare HPF (Negative); C & S Indicated? No/Sq. Contamination; Casts 0-2 Hyaline LPF (Negative); Epithelial Cells Many HPF (Negative); Mucus Trace (Negative)
[2018-11-29] MEDS: Tamsulosin 0.4 MG CAPCR PO (22:00)
--- NOTE | 2018-11-29 22:13 | DI.VRAD_ITS ---
EXAM: CT Abdomen and Pelvis Without Contrast EXAM DATE/TIME: 11/29/2018 8:28 PM CLINICAL HISTORY: 43 years old, female; Pain; Other: L flank pain; Prior surgery; Surgery type: 2 c-sections; Patient HX: L flank pain for 2 hours TECHNIQUE: Axial computed tomography images of the abdomen and pelvis without contrast. All CT scans at this facility use at least one of these dose optimization techniques: automated exposure control; mA and/or kV adjustment per patient size (includes targeted exams where dose is matched to clinical indication); or iterative reconstruction. Coronal and sagittal reformatted images were created and reviewed. COMPARISON: CT renal colic wo 10/23/2018 3:53 PM FINDINGS: Lower thorax: No acute findings. ABDOMEN: Liver: Liver is stably enlarged measuring 23 cm. No acute liver pathology or gross focal lesions identified. Gallbladder and bile ducts: Normal. No calcified stones. No ductal dilation. Pancreas: Normal. No ductal dilation. Spleen: Normal. No splenomegaly. Adrenals: Normal. No mass. Kidneys and ureters: There is a 5.5 mm x 5.8 mm stone impacted in the distal left ureter causing moderate upstream hydroureteronephrosis with associated extensive perinephric and periureteric stranding. There is also a small amount of left perirenal free fluid suggested, raising concern for possible calyceal rupture. Bilateral nephrolithiasis is again seen, stable. No evidence of right obstructive uropathy. Stomach and bowel: There is new wall thickening of the rectum and distal sigmoid. No other areas of segmental wall thickening are appreciated. No bowel obstruction. There is a large amount of fecal material in the rectal vault, however it has significantly improved from the reference exam. Appendix: No evidence of appendicitis. PELVIS: Bladder: Unremarkable as visualized. Reproductive: Unremarkable as visualized. ABDOMEN and PELVIS: Intraperitoneal space: Normal. No free air. No significant fluid collection. Bones/joints: No acute fracture. No dislocation. Soft tissues: Unremarkable. Vasculature: The vasculature demonstrates diffuse mild atherosclerotic calcification. Lymph nodes: Normal. No enlarged lymph nodes. IMPRESSION: 1. Moderate left obstructive uropathy caused by a 5.8 mm stone impacted in the distal left ureter. There is extensive inflammatory change surrounding the left ureter and left kidney, in which superimposed infection is difficult to exclude. There is also small amount of free fluid in the left perirenal space in which calyceal rupture is a possibility. 2. Stable bilateral nephrolithiasis. 3. New wall thickening of the rectum and distal sigmoid with improvement of prior rectal fecal impaction. Findings may be related to acute versus residual rectitis/sigmoiditis, most likely related to stercoral etiology although infectious/inflammatory process is not excluded. 4. Other stable/incidental findings as detailed above Dictated and Authenticated by: Dominic Kruger MD. Ordering:DARINEL Cooley MD
[2018-11-29 23:24] VITALS: BP 130/77; PULSE 85; RESP 16; TEMP 36.4; O2SAT 97
--- NOTE | 2018-11-30 08:58 | PDOC.ERCMPRO ---
Care Management Progress Note 11/30-Dr. Shirley requested assistance with a urology f/u this am for kidney stone, ? mild infection. Dr. Shirley consulted with Dr. Alva and Dr. Alva has requested this f/u. Referral faxed to Urology this am.
== END 2018-11-29 23:49 | disposition home or self-care (01) ==
PROVIDERS: Emergency Provider Student in an Organized Health Care Education/Training Program
DX: N20.1 Calculus of ureter (principal)
CPT/HCPCS: 36415; 80053; 81025; 83690; 96361; 96365; 96375; 99284; 74176; 81003; 81015; 85025; J1885; J2270; J2405

== ENCOUNTER 2018-12-23 15:23 | Outpatient (CLI) | payer BC, SELFPAY ==
--- NOTE | 2018-12-23 16:15 | DI.US_ITS ---
SYMPTOM/DIAGNOSIS: MODERATE HYDRONEPHROSIS WITH STONE, ? STONE PASSED, N13.30 RENAL ULTRASOUND: Comparison is made with 10/23/18. Comparison CT scan is 11/29/18. The right kidney measures 10.8 cm. in length. There is an echogenic focus seen in the lower pole measuring .4 cm. in length. No hydronephrosis or solid mass is seen. Normal blood flow is seen to the right kidney. The left kidney measures 11.6 cm. long. No definite renal masses, calculi or obstruction is identified. There is normal blood flow to the left kidney. The prevoid urinary bladder volume is 103 cc's. Both ureteral jets were visualized. Postvoid urinary bladder volume is 14 cc's. IMPRESSION: 1. Right nephrolithiasis. 2. No evidence of hydronephrosis.
== END 2018-12-23 15:43 ==
PROVIDERS: Visit Provider Nurse Practitioner Gerontology
DX: N20.0 Calculus of kidney (principal); N13.30 Unspecified hydronephrosis
CPT/HCPCS: 76770

== ENCOUNTER 2019-02-14 09:19 | Emergency (ER) | payer BC, SELFPAY ==
[2019-02-14 09:21] VITALS: BP 142/96; PULSE 96; RESP 16; TEMP 36.5; O2SAT 97
--- NOTE | 2019-02-14 09:24 | W.ED.GENAD ---
Discharge Plan Disposition Patient Disposition: HOME Condition: Stable Discharge Details Chief Complaint: RespSymp Clinical Impression: URI (upper respiratory infection) Primary Care Provider: None,None ED Provider: Evelyne Goldman Home Meds and New Rx's Prescriptions: New benzonatate [Tessalon Perles] 100 mg capsule 100 mg PO TID PRN (Reason: cough) Qty: 14 RF: 0 Continued ibuprofen 200 MG capsule 600 mg PO Q4H PRN RF: 0 ferrous sulfate [Iron (ferrous sulfate)] 325 mg (65 mg iron) tablet 325 mg PO DAILY Qty: 30 RF: 0 Discharge Instructions Instructions: Upper Respiratory Infection (ED) Additional Instructions: Encourage hydration. Tylenol and/or Ibuprofen as needed for discomfort. Tessalon perles as prescribed for cough. I have asked our care coordinators to help you get a primary care physician. They will call you with appointment. If you develop fevers/chills, difficulty breathing, shortness of breath, inability to stay hydrated or other new/worsening symptoms please seek care urgently once again. Medical Decision Making Patient presenting with c/c of cough and URI x 9 days. Endorses bilateral ear discomfort, worse on the right than left. No discharge. Has had tubes placed x 13 per patient report. Endorses congestion, mild sore throat. No SOB. Discomfort with cough circumfrencially. No pain with exertion or at rest. Cough largely non productive. No abdominal pain. Reports her stool has been softer than typical and darker, near black. On exam, she appears nontoxic. No cough was noted. Lungs are clear on exam. Normal cardiac exam. Bilatereal TM are scared. 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 She has had multiple surgeries, this is likely chronic. No bulging or erythema, no discharge to either TM. Do not believe she has acute otitis media. Plan to obtain cxr as cough has worsened. Patient reported darkened stools, rectal exam preformed, rectal exam WNL, heme negative. CXR reviewed by radiologist: FINDINGS: Lungs: Unremarkable. No consolidation. Pleural space: Unremarkable. No pleural effusion. No pneumothorax. Heart/Mediastinum: The cardiomediastinal silhouette is fairly stable in appearance. Bones/joints: Unremarkable. IMPRESSION: No evidence for acute pulmonary disease. Discussed findings with the patient. Advised that with her URI symptoms this is likely viral etiology. Enocuraged hydration. Advised on home remedies and OTC medications that may help with symptomatic management. Juan prescribe Tessalon Perles to help with cough. She was given strict return precautions. Does not have a PCP, have asked mall plant caretaker to help with this. All of her questions and concerns were addressed, she is in agreement with this plan. HPI General Mode of arrival: ambulatory. Date/Time Provider Initiated Documentation: 02/14/19 09:20. Limitations to Documentation: no limitations. Information obtained by: patient and RN notes reviewed. History of Present Illness 43 year old F presents to the emergency department with the chief complaint of cough, described as moderate, with intensity rated at 5. Quality is described as aching (with cough), and is localized to the chest and abdomen. Patient reports no radiation. Patient started experiencing this day(s) (9) and it has been constant. other things that improve symptom(s), (not coughing) Other factors that worsen symptoms (coughing) . Patient notes cough; denies confusion, diaphoresis, fever/chills, headaches, loss of appetite, nausea/vomiting, rash, shortness of breath and syncope. Patient did receive the following treatments prior to arrival, none Related Data Home Medications Medication Instructions Recorded Confirmed ibuprofen 600 mg PO Q4H PRN tab-cap 05/19/13 12/24/18 ferrous sulfate [Iron (ferrous 325 mg PO DAILY #30 tab 10/23/18 02/14/19 sulfate)] benzonatate [Tessalon Perles] 100 mg PO TID PRN #14 cap 02/14/19 Previous Rx's Medication Instructions Recorded ferrous sulfate [Iron (ferrous 325 mg PO DAILY #30 tab 10/23/18 sulfate)] benzonatate [Tessalon Perles] 100 mg PO TID PRN #14 cap 02/14/19 Allergies Allergy/AdvReac Type Severity Reaction Status Date / Time laundry soap Allergy Skin Rash Uncoded 02/14/19 09:24 mushrooms Allergy Skin Rash Uncoded 02/14/19 09:24 hot pepers AdvReac Mild Nausea Uncoded 02/14/19 09:24 General Stated Complaint: RespSymp MAYA: 3 Review of Systems Constitutional Reports as per HPI, Denies chills, Denies fever(s), Denies headache(s) and Denies poor appetite Eyes Reports as per HPI, Denies eye discharge and Denies irritation ENT Reports as per HPI, Denies change in voice, Denies ear discharge, Reports otalgia, Denies headache(s), Denies hoarseness, Reports nasal congestion, Reports nasal discharge, Reports sore throat and Denies throat swelling Cardiovascular Reports as per HPI, Denies chest pain, Denies dyspnea and Denies dyspnea on exertion Respiratory Reports as per HPI, Reports cough, Denies hemoptysis, Denies pain with cough, Denies dyspnea, Denies dyspnea on exertion, Denies stridor and Denies wheezing Gastrointestinal Reports as per HPI, Denies abdominal pain, Reports loose stools (has noted stools to be softer than typical and almost black), Denies nausea and Denies vomiting Genitourinary Denies system reviewed and no additional complaints, except as docu (denies change in urinary habits) and Denies hematuria Integumentary/Breasts Reports as per HPI and Denies rash Neurologic Reports as per HPI and Denies headache(s) Allergic/Immunologic Denies throat swelling and Denies wheezing [facility] Social History Smoking/Tobacco Use Status: Never Drug use: Never Do you feel safe at home: Yes Do you feel safe in your relationship?: Yes Exam Const General: cooperative, healthy appearing, comfortable, no acute distress, well developed and well groomed Nutritional Appearance: average body habitus and well nourished Orientation: alert and awake [facility] Head: normal to inspection, normocephalic and atraumatic Ears: hearing grossly normal bilaterally, external ears normal and TM abnormal (bilateral scaring, has rupture on the left, does not appear acute) General nose exam: external nose normal and nares normal Face and sinus: normal facial exam, sinuses nontender and face symmetric Mouth: oral mucosae normal, lip normal, tongue normal, oropharynx normal and moist mucous membranes Teeth and gingiva: dentition normal Throat: posterior oropharynx normal, tonsils normal and uvula midline Eyes General: appearance normal, both eyes and all related structures Neck Neck: normal visual inspection, full ROM, no lymphadenopathy and no meningeal signs Resp Effort & Inspection: normal respiratory effort, able to speak in complete sentences and no respiratory distress Auscultation: clear to auscultation bilaterally, no rales, no rhonchi and no wheezes Cardio Rate: regular rate Rhythm: regular rhythm Heart Sounds: S1 normal and S2 normal GI Inspection: normal to inspection Rectal Exam - female: visual inspection normal, normal sphincter tone, No abnormal stool, No fecal impaction, No fissure and heme negative stool Skin General skin exam: no rashes or lesions noted Neuro General: alert and awake Cognition: normal cognition Speech: speech normal Gait: normal gait Extrem General: normal to inspection, normal capillary refill, no pedal edema, no calf tenderness and normal gait Psych Appearance: grossly normal and well kempt Mental Status: mental status grossly normal Speech and Movement: speech and movement normal Course Vital Signs Temperature 36.5 C 02/14/19 09:21 Pulse 96 H 02/14/19 09:21 Respiratory Rate 16 02/14/19 09:21 Pulse Oximetry 97 02/14/19 09:21 Temperature 36.5 C 02/14/19 09:21 Temperature Source Temporal Artery Scan 02/14/19 09:21 Pulse 96 H 02/14/19 09:21 Respiratory Rate 16 02/14/19 09:21 Blood Pressure Position Sitting 02/14/19 09:21 Pulse Oximetry 97 02/14/19 09:21 Oxygen Delivery Method Room Air 02/14/19 09:21 Oxygen Flow Rate 0 02/14/19 09:21 Pain Level 5 02/14/19 09:21
--- NOTE | 2019-02-14 09:47 | ED.GENADUL_ITS ---
Discharge Plan Disposition Patient Disposition: HOME Condition: Stable Discharge Details Chief Complaint: RespSymp Clinical Impression: URI (upper respiratory infection) Primary Care Provider: None,None ED Provider: Evelyne Goldman Home Meds and New Rx's Prescriptions: New benzonatate [Tessalon Perles] 100 mg capsule 100 mg PO TID PRN (Reason: cough) Qty: 14 RF: 0 Continued ibuprofen 200 MG capsule 600 mg PO Q4H PRN RF: 0 ferrous sulfate [Iron (ferrous sulfate)] 325 mg (65 mg iron) tablet 325 mg PO DAILY Qty: 30 RF: 0 Discharge Instructions Instructions: Upper Respiratory Infection (ED) Additional Instructions: Encourage hydration. Tylenol and/or Ibuprofen as needed for discomfort. Tessalon perles as prescribed for cough. I have asked our care coordinators to help you get a primary care physician. They will call you with appointment. If you develop fevers/chills, difficulty breathing, shortness of breath, inability to stay hydrated or other new/worsening symptoms please seek care urgently once again. Medical Decision Making Patient presenting with c/c of cough and URI x 9 days. Endorses bilateral ear discomfort, worse on the right than left. No discharge. Has had tubes placed x 13 per patient report. Endorses congestion, mild sore throat. No SOB. Discomfort with cough circumfrencially. No pain with exertion or at rest. Cough largely non productive. No abdominal pain. Reports her stool has been softer than typical and darker, near black. On exam, she appears nontoxic. No cough was noted. Lungs are clear on exam. Normal cardiac exam. Bilatereal TM are scared. 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 She has had multiple surgeries, this is likely chronic. No bulging or erythema, no discharge to either TM. Do not believe she has acute otitis media. Plan to obtain cxr as cough has worsened. Patient reported darkened stools, rectal exam preformed, rectal exam WNL, heme negative. CXR reviewed by radiologist: FINDINGS: Lungs: Unremarkable. No consolidation. Pleural space: Unremarkable. No pleural effusion. No pneumothorax. Heart/Mediastinum: The cardiomediastinal silhouette is fairly stable in appearance. Bones/joints: Unremarkable. IMPRESSION: No evidence for acute pulmonary disease. Discussed findings with the patient. Advised that with her URI symptoms this is likely viral etiology. Enocuraged hydration. Advised on home remedies and OTC medications that may help with symptomatic management. Juan prescribe Tessalon Perles to help with cough. She was given strict return precautions. Does not have a PCP, have asked child care coordinator to help with this. All of her questions and concerns were addressed, she is in agreement with this plan. HPI General Mode of arrival: ambulatory . Date/Time Provider Initiated Documentation: 02/14/19 09:20 . Limitations to Documentation: no limitations . Information obtained by: patient and RN notes reviewed . History of Present Illness 43 year old F presents to the emergency department with the chief complaint of cough, described as moderate, with intensity rated at 5. Quality is described as aching (with cough), and is localized to the chest and abdomen. Patient reports no radiation. Patient started experiencing this day(s) (9) and it has been constant. other things that improve symptom(s), (not coughing) Other factors that worsen symptoms (coughing) . Patient notes cough; denies confusion, diaphoresis, fever/chills, headaches, loss of appetite, nausea/vomiting, rash, shortness of breath and syncope. Patient did receive the following treatments prior to arrival, none Related Data Home Medications Medication Instructions Recorded Confirmed ibuprofen 600 mg PO Q4H PRN tab-cap 05/19/13 12/24/18 ferrous sulfate [Iron (ferrous 325 mg PO DAILY #30 tab 10/23/18 02/14/19 sulfate)] benzonatate [Tessalon Perles] 100 mg PO TID PRN #14 cap 02/14/19 Previous Rx's Medication Instructions Recorded ferrous sulfate [Iron (ferrous 325 mg PO DAILY #30 tab 10/23/18 sulfate)] benzonatate [Tessalon Perles] 100 mg PO TID PRN #14 cap 02/14/19 Allergies Allergy/AdvReac Type Severity Reaction Status Date / Time laundry soap Allergy Skin Rash Uncoded 02/14/19 09:24 mushrooms Allergy Skin Rash Uncoded 02/14/19 09:24 hot pepers AdvReac Mild Nausea Uncoded 02/14/19 09:24 General Stated Complaint: RespSymp MAYA: 3 Review of Systems Constitutional Reports as per HPI, Denies chills, Denies fever(s), Denies headache(s) and Denies poor appetite Eyes Reports as per HPI, Denies eye discharge and Denies irritation ENT Reports as per HPI, Denies change in voice, Denies ear discharge, Reports otalgia, Denies headache(s), Denies hoarseness, Reports nasal congestion, Reports nasal discharge, Reports sore throat and Denies throat swelling Cardiovascular Reports as per HPI, Denies chest pain, Denies dyspnea and Denies dyspnea on exertion Respiratory Reports as per HPI, Reports cough, Denies hemoptysis, Denies pain with cough, Denies dyspnea, Denies dyspnea on exertion, Denies stridor and Denies wheezing Gastrointestinal Reports as per HPI, Denies abdominal pain, Reports loose stools (has noted stools to be softer than typical and almost black), Denies nausea and Denies vomiting Genitourinary Denies system reviewed and no additional complaints, except as docu (denies change in urinary habits) and Denies hematuria Integumentary/Breasts Reports as per HPI and Denies rash Neurologic Reports as per HPI and Denies headache(s) Allergic/Immunologic Denies throat swelling and Denies wheezing [facility] Social History Smoking/Tobacco Use Status: Never Drug use: Never Do you feel safe at home: Yes Do you feel safe in your relationship?: Yes Exam Const General: cooperative, healthy appearing, comfortable, no acute distress, well developed and well groomed Nutritional Appearance: average body habitus and well nourished Orientation: alert and awake [facility] Head: normal to inspection, normocephalic and atraumatic Ears: hearing grossly normal bilaterally, external ears normal and TM abnormal (bilateral scaring, has rupture on the left, does not appear acute) General nose exam: external nose normal and nares normal Face and sinus: normal facial exam, sinuses nontender and face symmetric Mouth: oral mucosae normal, lip normal, tongue normal, oropharynx normal and tomi st mucous membranes Teeth and gingiva: dentition normal Throat: posterior oropharynx normal, tonsils normal and uvula midline Eyes General: appearance normal, both eyes and all related structures Neck Neck: normal visual inspection, full ROM, no lymphadenopathy and no meningeal signs Resp Effort & Inspection: normal respiratory effort, able to speak in complete sentences and no respiratory distress Auscultation: clear to auscultation bilaterally, no rales, no rhonchi and no wheezes Cardio Rate: regular rate Rhythm: regular rhythm Heart Sounds: S1 normal and S2 normal GI Inspection: normal to inspection Rectal Exam - female: visual inspection normal, normal sphincter tone, No abnormal stool, No fecal impaction, No fissure and heme negative stool Skin General skin exam: no rashes or lesions noted Neuro General: alert and awake Cognition: normal cognition Speech: speech normal Gait: normal gait Extrem General: normal to inspection, normal capillary refill, no pedal edema, no calf tenderness and normal gait Psych Appearance: grossly normal and well kempt Mental Status: mental status grossly normal Speech and Movement: speech and movement normal Course Vital Signs Temperature 36.5 C 02/14/19 09:21 Pulse 96 H 02/14/19 09:21 Respiratory Rate 16 02/14/19 09:21 Pulse Oximetry 97 02/14/19 09:21 Temperature 36.5 C 02/14/19 09:21 Temperature Source Temporal Artery Scan 02/14/19 09:21 Pulse 96 H 02/14/19 09:21 Respiratory Rate 16 02/14/19 09:21 Blood Pressure Position Sitting 02/14/19 09:21 Pulse Oximetry 97 02/14/19 09:21 Oxygen Delivery Method Room Air 02/14/19 09:21 Oxygen Flow Rate 0 02/14/19 09:21 Pain Level 5 02/14/19 09:21
--- NOTE | 2019-02-14 09:56 | DI.RAD_ITS ---
SYMPTOMS/DIAGNOSIS: COUGH PA AND LATERAL CHEST: Comparison 11/10/14. The heart is normal in size. The lungs are clear. The mediastinal structures and pleura appear intact. CONCLUSION: Normal chest.
--- NOTE | 2019-02-14 10:39 | DI.VRAD_ITS ---
EXAM: XR Chest, 2 Views EXAM DATE/TIME: 02/14/2019 10:00 AM CLINICAL HISTORY: 43 years old, female; Signs and symptoms; Cough TECHNIQUE: Imaging protocol: XR of the chest, 2 views. COMPARISON: CR CHEST 2 VIEWS PA,LAT 11/10/2014 1:33 PM (report not provided) FINDINGS: Lungs: Unremarkable. No consolidation. Pleural space: Unremarkable. No pleural effusion. No pneumothorax. Heart/Mediastinum: The cardiomediastinal silhouette is fairly stable in appearance. Bones/joints: Unremarkable. IMPRESSION: No evidence for acute pulmonary disease. Dictated and Authenticated by: Amador Hurley MD. Ordering:ANÍBAL Stubbs MD
== END 2019-02-14 10:55 | disposition home or self-care (01) ==
PROVIDERS: Emergency Provider Physician Assistant
DX: J06.9 Acute upper respiratory infection, unspecified (principal)
CPT/HCPCS: 81025; 99283; 71046; 81003

== ENCOUNTER 2019-05-16 21:07 | Emergency (ER) | payer BC, SELFPAY ==
[2019-05-16 21:12] VITALS: BP 187/98; PULSE 77; RESP 18; TEMP 36.2; O2SAT 100
[2019-05-16] MEDS: Normal Saline 1,000 ML 1000 ML IV (21:30)
[2019-05-16 21:51] LABS: Abs Immature Grans 0.02 k/cumm (0.0-0.09); Absolute Basophil Count 0.04 k/cumm (0.0-0.2); Absolute Eosinophil Count 0.18 k/cumm (0.0-0.7); Absolute Lymphocyte Count 3.19 k/cumm (1.2-3.4); Absolute Monocyte Count 0.88 k/cumm (0.11-0.7); Absolute Neutrophil Count 5.81 k/cumm (1.2-6.7); Basophils % 0.4; Eosinophils % 1.8; HCT 35.2 % (36.0-46.0); HGB 10.6 g/dL (12.0-15.5); Immature Grans % 0.2; Lymphocytes % 31.5; Mean Corp. HGB Concentration 30.1 g/dL (32.0-36.0); Mean Corpuscular Hemoglobin 23.5 pg (27.0-33.0); Mean Platelet Volume 10.8 fL (8.0-11.0); Monocytes % 8.7; Neutrophils % 57.4; Platelet Count 286 x1000/uL (130-400); RBC 4.51 m/cumm (4.00-5.20); White Blood Cell Count 10.12 k/cumm (4.4-10.8)
[2019-05-16] MEDS: Ketorolac 30 MG/ML VIAL IVP (21:55)
[2019-05-16] MEDS: Ondansetron 4 MG/2 ML VIAL IVP (21:57)
--- NOTE | 2019-05-16 22:06 | W.ED.GENAD ---
Discharge Plan Disposition Patient Disposition: HOME Condition: Stable Discharge Details Chief Complaint: FlankPain Clinical Impression: Right ureteral stone Primary Care Provider: None,None ED Provider: Jhonatan Herrera Home Meds and New Rx's Prescriptions: New tamsulosin [Flomax] 0.4 mg capsule 0.4 mg PO DAILY Qty: 14 RF: 0 ondansetron 4 mg tablet,disintegrating 4 mg PO Q8H PRN (Reason: nausea and vomiting) Qty: 10 RF: 0 Continued ibuprofen 200 MG capsule 600 mg PO Q4H PRN RF: 0 ferrous sulfate [Iron (ferrous sulfate)] 325 mg (65 mg iron) tablet 325 mg PO DAILY Qty: 30 RF: 0 benzonatate [Tessalon Perles] 100 mg capsule 100 mg PO TID PRN (Reason: cough) Qty: 14 RF: 0 Discharge Instructions Instructions: Kidney Stones (ED), How to Strain Your Urine (ED) Additional Instructions: You may continue to take 600 mg of ibuprofen along with 1000 mg of acetaminophen every 6 hours as needed for pain control. Return immediately to the emergency department for any new or significant worsening of symptoms, fever chills, or persistent vomiting as she may need reassessment and further testing. Otherwise follow-up with urology. Stand Alone Forms: Work Release Referrals: Jamari Alva MD [ [facility] STAFF PHYSICIAN] - 1 week (Please call urology office for arrangement of follow-up appointment preferably in the next 1 to 2 weeks or as directed by them) Discharge Data Discharge Date/Time-TO BE ENTERED AT DEPARTURE: 05/17/19 00:00 Medical Decision Making Patient presenting the emergency department for flank pain for the past hour. History of kidney stone. Physical exam unremarkable. Plan to check labs and CT image Review of labs show no leukocytosis, anemia which is at baseline, CMP which is nondiagnostic and urine which shows significant amount of blood. CT imaging and reviewed radiology interpretation shows a 4.5 mm obstructing calculus just beyond the ureteropelvic junction within the right proximal ureter. There is mild to moderate hydroureter along with hydronephrosis. There is a 2 mm nonobstructing calculus in the left midpole kidney. Given non-worrisome size of stone I do feel that patient is able to be discharged home. Patient was reassessed and states significant improvement of nausea and pain. Patient was placed on Flomax and Zofran for nausea control. Otherwise patient states that previous episode she has been able to control her pain with [id number] pain medication and recommendations were given. Return precautions discussed. After discussion of diagnosis and plan of care patient has no further needs, questions, or concerns and states clear understanding to return to the emergency department for any worsening symptoms. HPI General Mode of arrival: ambulatory. Date/Time Provider Initiated Documentation: 05/16/19 21:08. Limitations to Documentation: no limitations. Information obtained by: patient and RN notes reviewed. History of Present Illness 44 year old F presents to the emergency department with the chief complaint of right flank pain, described as severe and similar to prior episodes, with intensity rated at 10. Quality is described as sharp, and is localized to the abdomen and right. Patient flank. Patient started experiencing this hour(s) (1) and it has been constant. No relieving factors improve symptom(s), No exacerbating factors reported . Patient did receive the following treatments prior to arrival, none Related Data Home Medications Medication Instructions Recorded Confirmed ibuprofen 600 mg PO Q4H PRN tab-cap 05/19/13 12/24/18 ferrous sulfate [Iron (ferrous 325 mg PO DAILY #30 tab 10/23/18 02/14/19 sulfate)] benzonatate [Tessalon Perles] 100 mg PO TID PRN #14 cap 02/14/19 ondansetron 4 mg PO Q8H PRN #10 tab 05/16/19 tamsulosin [Flomax] 0.4 mg PO DAILY #14 cap 05/16/19 Previous Rx's Medication Instructions Recorded ferrous sulfate [Iron (ferrous 325 mg PO DAILY #30 tab 10/23/18 sulfate)] benzonatate [Tessalon Perles] 100 mg PO TID PRN #14 cap 02/14/19 ondansetron 4 mg PO Q8H PRN #10 tab 05/16/19 tamsulosin [Flomax] 0.4 mg PO DAILY #14 cap 05/16/19 Allergies Allergy/AdvReac Type Severity Reaction Status Date / Time laundry soap Allergy Skin Rash Uncoded 02/14/19 09:24 mushrooms Allergy Skin Rash Uncoded 02/14/19 09:24 hot pepers AdvReac Mild Nausea Uncoded 02/14/19 09:24 General Stated Complaint: FlankPain MAYA: 3 Review of Systems Constitutional Denies chills and Denies fever(s) Cardiovascular Denies chest pain and Denies dyspnea Respiratory Denies cough and Denies dyspnea Gastrointestinal Denies abdominal pain, Denies melena, Denies change in bowel habits, Denies constipation, Denies diarrhea, Reports nausea and Denies vomiting Genitourinary Reports as per HPI, Denies hematuria, Denies dysuria, Reports flank pain and Denies urinary incontinence Musculoskeletal Denies back pain Integumentary/Breasts Denies rash [facility] Social History Smoking/Tobacco Use Status: Never Drug use: Never Do you feel safe at home: Yes Do you feel safe in your relationship?: Yes Exam Const General: cooperative Orientation: alert, awake and oriented x3 Resp Effort & Inspection: normal respiratory effort and able to speak in complete sentences Auscultation: clear to auscultation bilaterally Cardio Rate: regular rate Rhythm: regular rhythm Heart Sounds: S1 normal and S2 normal GI Palpation: soft, no hepatosplenomegaly, not firm, no guarding, no masses, no pulsatile masses, not rigid, no splenomegaly and nontender Auscultation: normal bowel sounds Back/Spine/Pelvis Back: no CVA tenderness Thoracic/Lumbar Spine: No paraspinal tenderness, No thoracic spinal tenderness and No lumbar spinal tenderness Neuro General: alert, awake, oriented x3, gait normal and moves all extremities Course Vital Signs Temperature 36.2 C L 05/16/19 21:12 Pulse 77 05/16/19 21:12 Respiratory Rate 18 05/16/19 21:12 Blood Pressure 187/98 H 05/16/19 21:12 Pulse Oximetry 100 05/16/19 21:12 Temperature 36.2 C L 05/16/19 21:12 Temperature Source Tympanic 05/16/19 21:12 Pulse 77 05/16/19 21:12 Respiratory Rate 18 05/16/19 21:12 Respiratory Effort 05/16/19 21:28 Blood Pressure 187/98 H 05/16/19 21:12 Blood Pressure Position Sitting 05/16/19 21:12 Pulse Oximetry 100 05/16/19 21:12 Oxygen Delivery Method Room Air 05/16/19 21:12 Oxygen Flow Rate 0 05/16/19 21:12 Pain Level 10 05/16/19 21:12 Lab/Test Results Lab/Test Results: Laboratory Tests Range/Units 05/16/19 21:40 WBC (4.4-10.8) k/cumm 10.12 RBC (4.00-5.20) m/cumm 4.51 Hgb (12.0-15.5) g/dL 10.6 L Hct (36.0-46.0) % 35.2 L MCV (80-95) fL 78.0 L MCH (27.0-33.0) pg 23.5 L MCHC (32.0-36.0) g/dL 30.1 L RDW (11.7-14.6) % 15.0 H Plt Count (130-400) x1000/uL 286 MPV (8.0-11.0) fL 10.8 Immature Gran % 0.2 Neutrophils % 57.4 Lymphocytes % 31.5 Monocytes % 8.7 Eosinophils % 1.8 Basophils % 0.4 Absolute Neutrophils (1.2-6.7) k/cumm 5.81 Absolute Lymphocytes (1.2-3.4) k/cumm 3.19 Absolute Monocytes (0.11-0.7) k/cumm 0.88 H Absolute Eosinophils (0.0-0.7) k/cumm 0.18 Absolute Basophils (0.0-0.2) k/cumm 0.04
[2019-05-16 22:12] LABS: ALT 16 U/L (12-78); AST 13 U/L (15-37); Albumin 3.4 g/dL (3.4-5.0); Alkaline Phosphatase 84 U/L (46-116); Anion Gap 9.4 mmol/L (3-11); BUN 18 mg/dL (7-18); Bilirubin, Total 0.2 mg/dL (0.2-1.0); CO2 27.6 mmol/L (21.0-32.0); CREATININE 1.02 mg/dL (0.55-1.02); Calcium 8.8 mg/dL (8.5-10.1); Chloride 104 mmol/L (98-107); Estimated GFR 58.87 (mL/min/1.73m2); Glucose 133 mg/dL (70-100); Potassium 3.5 mmol/L (3.5-5.1); Sodium 141 mmol/L (136-145); Total Protein 8.3 g/dL (6.4-8.2)
[2019-05-16 22:17] LABS: Bilirubin Negative (Negative); Blood Large (Negative); Clarity Sl Cloudy (Clear); Glucose Negative (Negative); Ketones Trace mg/dL (Negative); Leukocyte Esterase Negative (Negative); Nitrite Negative (Negative); Specific Gravity 1.025 (1.005-1.025); Urobilinogen 0.2 EU/dL (Up TO 0.2); pH 6.5 (5-8)
[2019-05-16 22:27] LABS: Bacteria Negative HPF (Negative); C & S Indicated? No; Casts Negative LPF (Negative); Crystals Negative HPF (Negative); Epithelial Cells Moderate HPF (Negative); Mucus Negative (Negative); RBC >50 (0-2); WBC Negative HPF (0-5)
--- NOTE | 2019-05-16 22:45 | DI.CT_ITS ---
SYMPTOMS/DIAGNOSIS: RT FLANK PAIN RENAL COLIC CT: Routine examination. Comparison 11/29/18. There is a 5 mm stone in the proximal right ureter causing moderate right hydroureter and hydronephrosis. Perinephritic stranding is seen around the right kidney. Nonobstructing stones are seen in the left kidney. No ureterolithiasis is seen. The urinary bladder is intact and incompletely distended. The reproductive organs are unremarkable. There is stool within the rectosigmoid colon. There is thickening of the wall of the rectosigmoid colon which is unchanged. Stercoral proctitis can not be excluded. The remainder of the bowel shows no acute abnormality. The unenhanced visualized portions of the liver, spleen, pancreas, gallbladder, bile ducts and adrenal glands are unremarkable. The aorta is of normal caliber. IMPRESSION: 1. 5 mm stone in the proximal right ureter causing right hydronephrosis and right hydroureter. 2. Left nephrolithiasis.
--- NOTE | 2019-05-16 23:24 | DI.VRAD_ITS ---
EXAM: CT Abdomen and Pelvis Without Contrast EXAM DATE/TIME: 05/16/2019 9:45 PM CLINICAL HISTORY: 44 years old, female; Prior surgery; Surgery date: 6+ months; Surgery type: C section x 2; Patient HX: Right flank pain HX of multiple stones TECHNIQUE: Imaging protocol: Axial computed tomography images of the abdomen and pelvis without contrast. Coronal and sagittal reformatted images were created and reviewed. Radiation optimization: All CT scans at this facility use at least one of these dose optimization techniques: automated exposure control; mA and/or kV adjustment per patient size (includes targeted exams where dose is matched to clinical indication); or iterative reconstruction. COMPARISON: CT renal colic wo 11/29/2018 9:29 PM FINDINGS: Lungs: The lungs are otherwise normal. Pleural space: There is no evidence of pneumothorax. There are no pleural effusions present. Heart: The cardiac structures are normal. Probable small pericardial effusion present. Liver: Normal. No mass. Gallbladder and bile ducts: Normal. No calcified stones. No ductal dilation. Pancreas: Normal. No ductal dilation. Spleen: Normal. No splenomegaly. Adrenals: Normal. No mass. Kidneys and ureters: There is a 4.5 mm obstructing calculus seen just beyond the ureteropelvic junction within the proximal right ureter. There is moderate right hydroureter. There is moderate right hydronephrosis. There is moderate to severe perinephric and proximal periureteric soft tissue stranding. 2 mm nonobstructing calculus seen at the mid pole left kidney. No evidence of obstruction the left ureter or collecting systems. Stomach and bowel: The stomach is filled with ingested material. There is moderate increased colonic fecal content. The colon is mildly distended. These findings suggest a moderate degree of constipation. Clinical correlation recommended. There is mild persistent thickening of the rectosigmoid colon. Appendix: A normal appendix is identified. There is no evidence of distention or periappendiceal inflammation to suggest appendicitis. Intraperitoneal space: There is no free intraperitoneal air. There is no evidence of free intraperitoneal or pelvic fluid. Vasculature: Normal. No abdominal aortic aneurysm. Lymph nodes: There is no evidence of lymphadenopathy. Bladder: There is nonspecific bladder wall thickening. This may be related to incomplete bladder filling. Reproductive: The uterus is normal. Bones/joints: No acute fracture. No dislocation. Soft tissues: Unremarkable. IMPRESSION: 1. There is a 4.5 mm obstructing calculus seen just beyond the ureteropelvic junction within the proximal right ureter. There is moderate right hydroureter. There is moderate right hydronephrosis. There is moderate to severe perinephric and proximal periureteric soft tissue stranding. 2. 2 mm nonobstructing calculus seen at the mid pole left kidney. Dictated and Authenticated by: Mars Mccullough MD. Ordering:SALMA Israel MD
[2019-05-16] MEDS: Ondansetron O.D.T. 4 MG TABEF PO (23:58)
[2019-05-16] MEDS: Tamsulosin 0.4 MG CAPCR PO (23:58)
[2019-05-16 23:59] VITALS: BP 164/80; PULSE 79; RESP 18; TEMP 36.5; O2SAT 99
--- NOTE | 2019-05-17 07:21 | NUR.NOTE ---
referral faxed to specialty clinic, Urology.Nursing Note:
== END 2019-05-17 | disposition home or self-care (01) ==
PROVIDERS: Emergency Provider Nurse Practitioner Family
DX: N13.2 Hydronephrosis with renal and ureteral calculous obstruction (principal); N13.4 Hydroureter; Z87.442 Personal history of urinary calculi
CPT/HCPCS: 36415; 80053; 81025; 96361; 96374; 96375; 99284; 74176; 81003; 81015; 85025; J1885; J2405

== ENCOUNTER 2019-06-07 09:55 | Day surgery (SDC) | payer BC, SELFPAY ==
[2019-06-07] VITALS (13 sets, daily range): BP systolic 132–149; BP diastolic 67–108; PULSE 88–100; RESP 10–20; TEMP 36–36.6; O2SAT 93–99
[2019-06-07] MEDS: Lactated Ringers 1,000 ML 80 ML IV (11:21)
--- NOTE | 2019-06-07 12:13 | DI.RAD_ITS ---
SYMPTOM/DIAGNOSIS: RT URETERAL STONE OR RETROGRADE: Fluoroscopy Time: 24.6 seconds C-arm fluoroscopy was utilized by Dr. Alva during cystoscopy and attempted removal of right ureteral stone. Hard copies appear to show a right ureteral stent or catheter in position.
[2019-06-07] MEDS: Lidocaine 2% Jelly 6 ML SYR (12:49)
[2019-06-07] MEDS: Omnipaque 300 MG/ML 50 ML BTL (12:52)
--- NOTE | 2019-06-07 13:36 | W.PM.DSUDISC ---
Discharge Plan Disposition Patient Disposition: HOME Condition: Stable Discharge Details Reason For Visit: (R) URETERAL STONE Attending Provider: Jamari Alva Primary Care Provider: None,None Home Meds and New Rx's Prescriptions: No Action tramadol 50 mg tablet 50 mg PO Q6H PRN (Reason: pain) Qty: 12 RF: 0 ibuprofen 200 MG capsule 600 mg PO Q4H PRN RF: 0 ferrous sulfate [Iron (ferrous sulfate)] 325 mg (65 mg iron) tablet 325 mg PO DAILY Qty: 30 RF: 0 tamsulosin [Flomax] 0.4 mg capsule 0.4 mg PO DAILY Qty: 14 RF: 0 ondansetron 4 mg tablet,disintegrating 4 mg PO Q8H PRN (Reason: nausea and vomiting) Qty: 10 RF: 0 Discharge Instructions Additional Instructions: No need to strain urine Pt has stent with string still attached - she will need to come to our office on or Friday to have her stent removed Pt will need F/U appt in 4 to 6 weeks - she will need a renal US on the day of her appt Activity:: Activity as Tolerated Shower/Bathe:: 24 hours Diet:: As Tolerated Discharge Orders Discharge Orders: Discharge Order (Routine); Ordered 06/07/19 Ordered By: Jamari Alva DS: Diagnosis Discharge Diagnosis (1) Right ureteral calculus: Status: Acute
--- NOTE | 2019-06-07 14:28 | ROE_ITS ---
REPORT OF OPERATIVE PROCEDURE DATE OF PROCEDURE June 07, 2019 PREOPERATIVE DIAGNOSIS Right ureteral stone. POSTOPERATIVE DIAGNOSIS Right ureteral stone. PROCEDURES Cystoscopy, right retrograde pyelogram, right rigid ureteroscopy with Holmium laser lithotripsy and s tone extraction, insert right ureteral stent. SURGEON Jamari Alva M.D. ANESTHESIA General. COMPLICATIONS None. ESTIMATED BLOOD LOSS Minimal. HISTORY This is a 44-year-old woman who has a history of multiple previous kidney stones. She has never requi red surgery, but currently she has a right proximal ureteral stone that has not progressed, that she has been symptomatic with pain and nausea. We gave her conservative management through the weekend with a plan on moving towards surgery today i f she was unable to advance her stone. We have been attempting to obtain prior authorization for her surgery. In spite of prolonged wait jonathan es on the phone, both on Friday and Friday, we have been unable to reach a member of her insurance te am. We are proceeding with the surgery without the prior authorization as we are deeming it more urge nt/emergent given her prolonged symptoms. DESCRIPTION OF PROCEDURE The patient was brought to the Operating Room on 06/07/2019. After successful induction of general an esthesia, she was placed in the dorsal lithotomy position. Her genitalia was prepped and draped ster ilely. A #22-Urdu rigid cystoscope was passed through the urethra into the bladder. The bladder was inspec ronaldo with a 30-degree lens. The right ureteral orifice was visualized. The orifice was cannulated with a #6-Urdu access cathete r. A retrograde film was obtained by injecting Omnipaque through the access catheter under fluorosco pic guidance. There did appear to be a filling defect in the mid ureter. We then elected to use the semi-rigid uret eroscope. A Glidewire was advanced through the access catheter and positioned with the proximal end curled in t he upper pole calyx. The access catheter was removed, as was the cystoscope. The semi-rigid ureteroscope was then passed t hrough the urethra into the bladder. We were able to negotiation the scope into the left ureteral harmony fice and advance the scope to the proximal ureter. We actually visualized a stone in the proximal ureter, not in the mid ureter. This stone had some marjorie ma surrounding it. We treated the stone with a 365 micron Holmium laser fiber. Initially, we utilized a dusting technique. We then switched over to a fragmentation technique. As the stone fragmented, we were able to grasp multiple fragments in a Zero Tip stone basket and removed the fragments, and sent them to pathology. We re-inserted the ureteroscope and no additional large stone fragments were seen. We elected to plac e a 4.8 Urdu variable length stent postoperatively. We slid the stent over the indwelling wire. We positioned the stent with the proximal end in the upper pole calyx and the distal end in the bladder. We left the safety string in place and brought the string through the urethra. We then tucked the st ring into the patient's vaginal cavity. The stent can be removed in two to three days. The patient tolerated this procedure well. There were no complications.
[2019-06-07] MEDS: fentaNYL 100 MCG/2 ML VIAL IVP (14:45)
[2019-06-07] MEDS: Droperidol 5 MG/2 ML VIAL 0.625 MG IVP (15:25)
[2019-06-15 11:22] LABS: Source: Right Ureter
[2019-06-15 11:23] LABS: Comment See Comments
== END 2019-06-07 17:09 | disposition home or self-care (01) ==
PROVIDERS: Visit Provider Urology
PROC: (CPT 52356; principal; 2019-06-07 11:15)
DX: N20.1 Calculus of ureter (principal); Z87.442 Personal history of urinary calculi
CPT/HCPCS: 52356; 74420; 82365; J0690; J1100; J1790; J2405; J3010; Q9967

== ENCOUNTER 2019-07-16 01:20 | Outpatient (CLI) | payer BC, SELFPAY ==
--- NOTE | 2019-07-16 08:43 | DI.US_ITS ---
EXAM: US RENAL CLINICAL HISTORY: rt ureteral calculus, N20.1, r/o hydronephrosis after ureteroscopy. TECHNIQUE: Ultrasound performed using standard protocol. COMPARISON: US renal from 12/23/2018 FINDINGS: Kidneys are not optimally visualized but appear grossly unremarkable with no evidence of renal mass h ydronephrosis or nephrolithiasis. Pre and post void appearance of the bladder is unremarkable with prevoid bladder volume 109 cc and po stvoid bladder volume 1 3 cc. Ureteral jets not visualized. IMPRESSION: Limited study. No gross renal abnormality. No evidence of hydronephrosis.
== END 2019-07-16 01:40 ==
PROVIDERS: Visit Provider Urology
DX: N20.1 Calculus of ureter (principal)
CPT/HCPCS: 76770

== ENCOUNTER 2019-10-31 11:14 | Emergency (ER) | payer BC, SELFPAY ==
[2019-10-31 11:17] VITALS: BP 150/97; PULSE 102; RESP 18; TEMP 36.5; O2SAT 98
--- NOTE | 2019-10-31 11:31 | W.ED.GENAD ---
Discharge Plan Disposition Patient Disposition: HOME Condition: Stable Discharge Details Chief Complaint: DentalOral Clinical Impression: Dental infection, Dental caries Primary Care Provider: None,None ED Provider: Myah Horn Home Meds and New Rx's Prescriptions: New penicillin V potassium 500 mg tablet 500 mg PO QID 7 Days Qty: 28 RF: 0 Continued ibuprofen 200 MG capsule 600 mg PO Q4H PRN RF: 0 acetaminophen 325 mg Tablet 975 mg PO ONCE PRNRF: 0 ferrous sulfate [Iron (ferrous sulfate)] 325 mg (65 mg iron) tablet 325 mg PO DAILY Qty: 30 RF: 0 Discharge Instructions Instructions: Dental Caries (ED) Additional Instructions: Take the antibiotics until finished. Alternate tylenol and motrin as needed and directed for pain. Call a dentist tomorrow morning to schedule a follow-up appointment for reevaluation. Return immediately to the emergency department if you develop any worsening or concerning symptoms such as fever, worsening pain, redness, swelling. Discharge Data Discharge Date/Time-TO BE ENTERED AT DEPARTURE: 10/31/19 11:40 Discharge Physician: Myah Horn Medical Decision Making 44-year-old female presents with left lower dental pain since yesterday. Denies fever. Denies any known injury or recent antibiotics. Poor dentition throughout. Multiple dental caries and missing teeth. There is tenderness to palpation left lower anterior tooth with minimal surrounding edema and erythema. No abscess noted. Normal oropharynx. No submandibular swelling, trismus or drooling. We will treat with penicillin. Patient given dental follow-up list. Usual and customary return precautions given prior to discharge. HPI General Mode of arrival: ambulatory. Date/Time Provider Initiated Documentation: 10/31/19 11:15. Limitations to Documentation: no limitations. Information obtained by: patient. History of Present Illness 44 year old F presents to the emergency department with the chief complaint of Left lower dental pain, Patient started experiencing this day(s) (1) and it has been constant. Medication improves symptom(s), (She has been alternating Tylenol and Motrin with some relief) No exacerbating factors reported . Patient notes no other symptoms.. Patient did receive the following treatments prior to arrival, none Related Data Home Medications Medication Instructions Recorded Confirmed ibuprofen 600 mg PO Q4H PRN tab-cap 05/19/13 10/31/19 ferrous sulfate [Iron (ferrous 325 mg PO DAILY #30 tab 01/04/19 01/12/20 sulfate)] acetaminophen 975 mg PO ONCE PRN 10/31/19 10/31/19 penicillin V potassium 500 mg PO QID 7 Days #28 tab 10/31/19 Previous Rx's Medication Instructions Recorded ferrous sulfate [Iron (ferrous 325 mg PO DAILY #30 tab 10/23/18 sulfate)] penicillin V potassium 500 mg PO QID 7 Days #28 tab 10/31/19 Allergies Allergy/AdvReac Type Severity Reaction Status Date / Time laundry soap Allergy Skin Rash Uncoded 10/31/19 11:23 mushrooms Allergy Skin Rash Uncoded 10/31/19 11:23 hot pepers AdvReac Mild Nausea Uncoded 10/31/19 11:23 General Stated Complaint: DentalOral MAYA: 4 Review of Systems All systems reviewed & are unremarkable except as noted in HPI and below Constitutional Constitutional: Reports as per HPI, Denies chills and Denies fever(s) Eyes Eyes: Denies blurry vision ENT Ears, Nose, Mouth, and Throat: Reports dental pain, Denies dizziness, Denies sore throat and Denies throat swelling Cardiovascular Cardiovascular: Denies chest pain and Denies dyspnea Respiratory Respiratory: Denies cough and Denies dyspnea Gastrointestinal Gastrointestinal: Denies abdominal pain, Denies diarrhea and Denies vomiting Genitourinary Genitourinary: Denies hematuria and Denies dysuria Musculoskeletal Musculoskeletal: Denies back pain and Denies numbness Integumentary/Breasts Skin/Breast: Denies lesions and Denies rash Neurologic Neurologic: Denies dizziness, Denies focal weakness and Denies numbness Allergic/Immunologic Allergic/Immunologic: Denies throat swelling [facility] Medical History Kidney stone (Chronic) Obesity (Chronic) Right ureteral calculus (Acute) Surgical History History of section (Chronic) History of cystoscopy (Acute) kidney stones Family History Other Diabetes Social History Smoking/Tobacco Use Status: Never Alcohol Intake: never Drug use: Never Do you feel safe at home: Yes Do you feel safe in your relationship?: Yes Exam Const General: cooperative, healthy appearing and no acute distress HENMT Head: normal to inspection Ears: hearing grossly normal bilaterally, external ears normal and TM's normal bilaterally General nose exam: external nose normal Mouth: oral mucosae normal Teeth and gingiva: poor dentition Teeth image: 1. Tenderness to palpation of left lower anterior tooth. Multiple dental caries and missing teeth throughout. Minimal surrounding edema and erythema of mucosa. No abscess noted. Throat: posterior oropharynx normal and uvula midline Eyes General: appearance normal, both eyes and all related structures Neck Neck: normal visual inspection Resp Effort & Inspection: normal respiratory effort and able to speak in complete sentences Cardio Rate: regular rate Skin General skin exam: no rashes or lesions noted Neuro General: alert, awake and oriented x3 Motor: muscle tone normal throughout Extrem General: normal to inspection and full ROM Psych Appearance: grossly normal Affect: normal affect Course Vital Signs Vital signs: Vital Signs Temperature 97.7 F 10/31/19 11:17 Pulse 102 H 10/31/19 11:17 Respiratory Rate 18 10/31/19 11:17 Blood Pressure 150/97 H 10/31/19 11:17 Pulse Oximetry 98 10/31/19 11:17 Temperature 97.7 F 10/31/19 11:17 Temperature Source Temporal Artery Scan 10/31/19 11:17 Pulse 102 H 10/31/19 11:17 Respiratory Rate 18 10/31/19 11:17 Respiratory Effort Non-Labored 10/31/19 11:22 Blood Pressure 150/97 H 10/31/19 11:17 Blood Pressure Position Sitting 10/31/19 11:17 Pulse Oximetry 98 10/31/19 11:17 Oxygen Delivery Method Room Air 10/31/19 11:17 Oxygen Flow Rate 0 10/31/19 11:17 Pain Level 7 10/31/19 11:25
== END 2019-10-31 11:40 | disposition home or self-care (01) ==
PROVIDERS: Emergency Provider Physician Assistant
DX: R68.84 Jaw pain (principal); K04.7 Periapical abscess without sinus
CPT/HCPCS: 99283

== ENCOUNTER 2020-08-24 07:17 | Emergency (ER) | payer BC, SELFPAY ==
[2020-08-24 07:20] VITALS: BP 179/80; PULSE 107; RESP 16; TEMP 36.1; O2SAT 100
--- NOTE | 2020-08-24 07:22 | ED.GENADUL_ITS ---
Discharge Plan Disposition Patient Disposition: HOME Condition: Stable Discharge Details Clinical Impression: Pain, dental Primary Care Provider: None,None ED Provider: Amador Henry Home Meds and New Rx's Prescriptions: New amoxicillin-pot clavulanate [Augmentin] 875-125 mg tablet 1 tab PO BID Qty: 14 RF: 0 Continued ibuprofen 200 MG capsule 600 mg PO Q4H PRN RF: 0 acetaminophen 325 mg Tablet 975 mg PO ONCE PRNRF: 0 ferrous sulfate [Iron (ferrous sulfate)] 325 mg (65 mg iron) tablet 325 mg PO DAILY Qty: 30 RF: 0 Discharge Instructions Instructions: Toothache (ED) Additional Instructions: follow up with your dentist as soon as possible if you have fevers, severe worsening pain or difficulty swallowing liquids return to the emergency department Medical Decision Making 45 yo female comes in with worsening right upper tooth pain and intermittent radiation to the right ear. Denies fevers, dyspnea or difficulty swallowing. Denies throat pain, and has no submandibular swelling on exam, no pain over hyoid or restrcited neck movements and normal posterior pharynx with midline uvula, no findings to suggest ludwigs, rpa, police captain or epiglotitis. Both tm's and external auditory canals normal as are external mastoids. She has numerous eroded teeth and eroded right upper molar surrounding gum is erythematous with pain to palpation, no visible abscess. Likely dental infection. Will d/c home on augmentin and advised to f/u with dentist and return precautions given Differential Diagnosis Differential Diagnosis: caries, abscess, pulpitis HPI General Mode of arrival: ambulatory . Date/Time Provider Initiated Documentation: 08/24/20 07:18 . Limitations to Documentation: no limitations . Information obtained by: patient . History of Present Illness 45 year old F presents to the emergency department with the chief complaint of right upper tooth pain, described as moderate, Patient started experiencing this day(s) (4) and it has been constant. No relieving factors improve symptom(s), No exacerbating factors reported . Related Data Home Medications Medication Instructions Recorded Confirmed ibuprofen 600 mg PO Q4H PRN tab-cap 05/19/13 10/31/19 ferrous sulfate [Iron (ferrous 325 mg PO DAILY #30 tab 10/23/18 10/31/19 sulfate)] acetaminophen 975 mg PO ONCE PRN 10/31/19 10/31/19 amoxicillin-pot clavulanate 1 tab PO BID #14 tab 08/24/20 [Augmentin] Previous Rx's Medication Instructions Recorded ferrous sulfate [Iron (ferrous 325 mg PO DAILY #30 tab 10/23/18 sulfate)] amoxicillin-pot clavulanate 1 tab PO BID #14 tab 08/24/20 [Augmentin] Allergies Allergy/AdvReac Type Severity Reaction Status Date / Time laundry soap Allergy Skin Rash Uncoded 08/24/20 07:25 mushrooms Allergy Skin Rash Uncoded 08/24/20 07:25 hot pepers AdvReac Mild Nausea Uncoded 08/24/20 07:25 General MAYA: 4 Review of Systems All systems reviewed & are unremarkable except as noted in HPI and below Constitutional Constitutional: Denies chills, Denies fever(s) and Denies weakness ENT Ears, Nose, Mouth, and Throat: Denies change in voice Cardiovascular Cardiovascular: Denies chest pain and Denies dyspnea Respiratory Respiratory: Denies cough and Denies dyspnea Gastrointestinal Gastrointestinal: Denies abdominal pain, Denies nausea and Denies vomiting Integumentary/Breasts Skin/Breast: Denies rash Neurologic Neurologic: Denies weakness [facility] Medical History (Updated 08/24/20 @ 07:22 by Amador Henry MD) Kidney stone Obesity Right ureteral calculus Surgical History History of section History of cystoscopy kidney stones Family History Other Diabetes Social History Smoking/Tobacco Use Status: Never Smoking risk assessment performed?: Yes Alcohol Intake: never Drug use: Never Do you feel safe at home: Yes Do you feel safe in your relationship?: Yes Exam Const General: no acute distress Orientation: alert HENMT Head: normal to inspection Ears: external ears normal General nose exam: external nose normal Mouth: moist mucous membranes Eyes General: appearance normal, both eyes and all related structures Neck Neck: normal visual inspection Resp Effort & Inspection: normal respiratory effort and able to speak in complete sentences Cardio Rate: regular rate Skin General skin exam: no rashes or lesions noted Neuro General: patient alert and patient oriented x3 Extrem General: normal to inspection Psych Mental Status: mental status grossly normal
== END 2020-08-24 07:27 | disposition home or self-care (01) ==
LOC: ER 07:31
PROVIDERS: Emergency Provider Emergency Medicine
DX: R68.84 Jaw pain (principal); K04.7 Periapical abscess without sinus
CPT/HCPCS: 99283

== ENCOUNTER 2023-01-16 01:33 | Outpatient (CLI) | payer BC, SELFPAY ==
--- NOTE | 2023-01-16 07:00 | DI.MAMMO_ITS ---
Exam(s) MAMMO SCREENING EXAM: MAMMO SCREENING CLINICAL HISTORY: screening.z12.39 TECHNIQUE: Mammograms were interpreted according to the usual protocol including computer analysis w [employer] CAD system, tomosynthesis and C-view imaging. COMPARISON: None. Baseline examination. FINDINGS: The breasts are composed of mainly fatty density , Breast Density category A. No suspicious masses or suspicious microcalcifications are seen. No skin thickening or abnormal axillary lymph nodes are seen. IMPRESSION: BI-RADS Category 1, Negative mammogram Yearly screening mammography is recommended. Breast Density - Category A, fatty density. A negative radiographic report should not delay biopsy if a dominant or clinically suspicious mass is present. Up to ten percent of cancers are not identified on mammography. A negative report may reinforce clinical impression. Adenosis and dense breasts may obscure an underlying neoplasm. False positive reports average 6 to 10%. Patient will receive a letter notifying them of these results.
== END 2023-01-16 01:53 ==
LOC: DI 01:33
PROVIDERS: PCP Nurse Practitioner Family; Visit Provider Nurse Practitioner Family
DX: Z12.31 Encounter for screening mammogram for malignant neoplasm of breast (principal)
CPT/HCPCS: 77063; 77067

== ENCOUNTER 2023-01-23 03:34 | Outpatient (CLI) | payer BC, SELFPAY ==
[2023-01-23 11:41] LABS: Anion Gap 7.9 mmol/L (3-11); BUN 18 mg/dL (7-18); CO2 28.1 mmol/L (21.0-32.0); CREATININE 0.9 mg/dL (0.55-1.02); Calcium 8.7 mg/dL (8.5-10.1); Calculated LDL 93 mg/dL (<100); Chloride 107 mmol/L (98-107); Cholesterol 164 mg/dL (<200); Estimated GFR 79.35 (mL/min/1.73m2); Glucose 106 mg/dL (74-106); HDL Cholesterol 46 mg/dL (40-60); Potassium 3.6 mmol/L (3.5-5.1); Sodium 143 mmol/L (136-145); TSH (W/Ref FT4) 5.46 uIU/mL (0.36-3.74); Triglyceride 128 mg/dL (<150)
[2023-01-23 11:50] LABS: Hemoglobin A1C 5.8 % (<5.7)
[2023-01-23 12:02] LABS: FREE T4 0.97 ng/dL (0.76-1.46)
== END 2023-01-23 03:35 | disposition home or self-care (01) ==
LOC: LBO 03:34
PROVIDERS: PCP Nurse Practitioner Family; Visit Provider Nurse Practitioner Family
DX: Z00.00 Encounter for general adult medical examination without abnormal findings (principal)
CPT/HCPCS: 36415; 80048; 80061; 83036; 84439; 84443

== ENCOUNTER 2023-04-01 02:17 | Outpatient (CLI) | payer BC, SELFPAY ==
--- NOTE | 2023-04-01 15:00 | NS.NUTBLAN_ITS ---
Nalini was referred for nutritional counseling for pre diabetes and obesity. 5'5 261 lbs BMI: 43 PMH: pre DM, HTN 01/23/23: A1C: 5.8% Family hx of DM2 Diet Recall: breakfast Bagel for B, Lunch: sandwich, D: crock pot. limits junk food and sweets. Cooks a lot from scratch. Does not eat bakery items. 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 She is knowledgeable of nutrition and know who to read labels and cooks daily.. She typically avoids sweets and fast food but cannot seem to lose weight. Suspect inulin resistance is limiting her weight loss. Provided information on how to follow a lower carb, higher protein diet with emphasis on complex carbs, lean protein and healthy fats. Encourage her to limit her carb intake to no more than 100 grams daily. Also, recommend walking 10-14 miles per week. Nalini may benefit from a GLP1ra such as ozempic/wegovy. Goal Wt: 230 lbs or less No follow up planned
== END 2023-04-01 02:18 | disposition home or self-care (01) ==
LOC: DS 02:17
PROVIDERS: PCP Nurse Practitioner Family; Visit Provider Dietitian, Registered
DX: R73.03 Prediabetes (principal); I10 Essential (primary) hypertension; E66.8 Other obesity; Z68.41 Body mass index [BMI] 40.0-44.9, adult; Z71.3 Dietary counseling and surveillance
CPT/HCPCS: 97802

== ENCOUNTER 2023-04-30 03:00 | Outpatient (CLI) | payer BC, SELFPAY ==
[2023-04-30 13:03] LABS: Anion Gap 7.4 mmol/L (3-11); BUN 17 mg/dL (7-18); CO2 28.6 mmol/L (21.0-32.0); CREATININE 0.9 mg/dL (0.55-1.02); Calcium 8.7 mg/dL (8.5-10.1); Chloride 105 mmol/L (98-107); Estimated GFR 79.35 (mL/min/1.73m2); Glucose 107 mg/dL (74-106); Potassium 4.1 mmol/L (3.5-5.1); Sodium 141 mmol/L (136-145)
[2023-04-30 13:31] LABS: FREE T4 0.93 ng/dL (0.76-1.46)
== END 2023-04-30 03:01 | disposition home or self-care (01) ==
LOC: LBO 03:00
PROVIDERS: PCP Nurse Practitioner Family; Visit Provider Nurse Practitioner Family
DX: I10 Essential (primary) hypertension (principal); R79.89 Other specified abnormal findings of blood chemistry
CPT/HCPCS: 36415; 80048; 84439; 84443

== ENCOUNTER 2023-06-30 02:07 | Outpatient (CLI) | payer BC, SELFPAY ==
[2023-06-30 16:23] LABS: Abs Immature Grans 0.01 10^3/uL (0.0-0.06); Absolute Basophil Count 0.05 10^3/uL (0.0-0.2); Absolute Eosinophil Count 0.14 10^3/uL (0.0-0.7); Absolute Lymphocyte Count 2.75 10^3/uL (1.2-3.4); Absolute Monocyte Count 0.64 10^3/uL (0.1-0.8); Absolute Neutrophil Count 4.06 10^3/uL (1.2-6.7); Basophils % 0.7; Eosinophils % 1.8; HCT 29.9 % (36.0-46.0); HGB 8.4 g/dL (11.2-15.7); Immature Grans % 0.1; Lymphocytes % 35.9; MCH 20.1 pg (27.0-33.0); MCHC 28.1 % (32.0-36.0); MCV 72 fL (80-95); MPV 10.6 fL (8.0-11.0); Monocytes % 8.4; Neutrophils % 53.1; Platelet Count 296 10^3/uL (130-400); RBC 4.18 10^6/uL (3.93-5.22); RDW 16.4 % (11.7-14.6); RDW-SD 42.2 fL; WBC 7.65 10^3/uL (4.4-10.8)
[2023-06-30 17:02] LABS: TSH (W/Ref FT4) 6.25 uIU/mL (0.36-3.74)
[2023-06-30 17:33] LABS: FREE T4 0.86 ng/dL (0.76-1.46)
[2023-06-30 17:39] LABS: Anisocytosis 1+; Diff Comment Diff Reviewed; Hypochromasia 1+; Microcytosis 1+
[2023-06-30 21:36] LABS: Lab Add On Test DONE
[2023-06-30 21:57] LABS: Iron 19 ug/dL (50-170)
[2023-06-30 22:24] LABS: Ferritin 5 ng/mL (8-252); Folate 17.5 ng/mL (8.6-20.0); Vitamin B12 282 pg/mL (193-986)
== END 2023-06-30 02:08 | disposition home or self-care (01) ==
LOC: LBO 02:07
PROVIDERS: PCP Nurse Practitioner Family; Visit Provider Nurse Practitioner Family
DX: N93.9 Abnormal uterine and vaginal bleeding, unspecified (principal); D64.9 Anemia, unspecified
CPT/HCPCS: 36415; 82607; 82728; 82746; 83540; 84439; 84443; 85025

== ENCOUNTER 2024-03-23 14:03 | Outpatient (REF) | payer BC, SELFPAY | END 2024-03-23 14:04 | disposition home or self-care (01) | LOC: LBN 14:03 | PROVIDERS: PCP Nurse Practitioner Family; Visit Provider Nurse Practitioner Family | DX: J02.9 Acute pharyngitis, unspecified (principal) | CPT/HCPCS: 87070 ==

== ENCOUNTER 2024-06-25 01:22 | Outpatient (CLI) | payer BC, SELFPAY ==
[2024-06-25 15:20] LABS: Abs Immature Grans 0.02 10^3/uL (0.0-0.06); Absolute Basophil Count 0.07 10^3/uL (0.0-0.2); Absolute Eosinophil Count 0.11 10^3/uL (0.0-0.7); Absolute Lymphocyte Count 2.72 10^3/uL (1.2-3.4); Eosinophils % 1.5 %; HCT 37.2 % (36.0-46.0); HGB 11.2 g/dL (11.2-15.7); Immature Grans % 0.3 %; Lymphocytes % 37.7 %; MCH 24.8 pg (27.0-33.0); MCHC 30.1 % (32.0-36.0); MCV 82 fL (80-95); MPV 10.2 fL (8.0-11.0); Monocytes % 8.3 %; Neutrophils % 51.2 %; Platelet Count 291 10^3/uL (130-400); RBC 4.52 10^6/uL (3.93-5.22); RDW-SD 44.6 fL; WBC 7.22 10^3/uL (4.4-10.8)
[2024-06-25 15:29] LABS: Hemoglobin A1C 5.9 % (<5.7)
[2024-06-25 16:01] LABS: ALT 20 U/L (14-59); AST 17 U/L (15-37); Albumin 3.4 g/dL (3.4-5.0); Alkaline Phosphatase 75 U/L (46-116); BUN 20 mg/dL (7-18); Bilirubin, Total 0.31 mg/dL (0.2-1.0); CREATININE 1.1 mg/dL (0.55-1.02); Calcium 8.9 mg/dL (8.5-10.1); Chloride 106 mmol/L (98-107); Ferritin 20 ng/mL (8-252); Glucose 98 mg/dL (74-106); Potassium 3.7 mmol/L (3.5-5.1); Sodium 142 mmol/L (136-145); TSH (W/Ref FT4) 5.61 uIU/mL (0.36-3.74); Total Protein 7.9 g/dL (6.4-8.2)
[2024-06-25 16:04] LABS: Iron 43 ug/dL (50-170)
[2024-06-25 16:29] LABS: FREE T4 0.87 ng/dL (0.76-1.46)
[2024-06-25 23:36] LABS: HIV-1/2 Ag & Ab Screen Negative (Negative)
[2024-06-25 23:37] LABS: HBs Antibody, Quant <3.1 mIU/mL (See Note); Hep B Surface Ab Negative (See Note); Hepatitis B Core Antibody Negative (Negative); Hepatitis B Surface Antigen Negative (Negative); Hepatitis C Ab w Rflx HCV PCR Negative (Negative)
[2024-06-28 10:04] LABS: Transferrin 321 mg/dL (201-352)
== END 2024-06-25 01:23 | disposition home or self-care (01) ==
LOC: LBO 01:23
PROVIDERS: PCP Nurse Practitioner Family; Visit Provider Nurse Practitioner Family
DX: D50.9 Iron deficiency anemia, unspecified (principal); Z11.4 Encounter for screening for human immunodeficiency virus [HIV]; Z11.59 Encounter for screening for other viral diseases
CPT/HCPCS: 36415; 80053; 86704; 86706; 86803; 87340; 87389; 82728; 83036; 83540; 84439; 84443; 84466; 85025

== ENCOUNTER 2024-07-01 02:24 | Outpatient (CLI) | payer BC, SELFPAY ==
--- NOTE | 2024-07-01 09:51 | DI.MAMMO_ITS ---
Exam(s) MAMMO SCREENING EXAM: MAMMO SCREENING MAMMO SCREENING CLINICAL HISTORY: screening,z12.39 TECHNIQUE: Mammograms were interpreted according to the usual protocol including computer analysis w [employer] CAD system, tomosynthesis and C-view imaging. COMPARISON: 2022 FINDINGS: The breasts are composed of mainly fatty density , Breast Density category A. No suspicious masses or suspicious microcalcifications are seen. No skin thickening or abnormal axillary lymph nodes are seen. There has been no significant change from prior exams. IMPRESSION: BI-RADS Category 1, Negative mammogram Yearly screening mammography is recommended. Breast Density - Category A, fatty density. A negative radiographic report should not delay biopsy if a dominant or clinically suspicious mass is present. Up to ten percent of cancers are not identified on mammography. A negative report may reinforce clinical impression. Adenosis and dense breasts may obscure an underlying neoplasm. False positive reports average 6 to 10%. Patient will receive a letter notifying them of these results.
== END 2024-07-01 02:44 ==
LOC: DI 02:24
PROVIDERS: PCP Nurse Practitioner Family; Visit Provider Nurse Practitioner Family
DX: Z12.31 Encounter for screening mammogram for malignant neoplasm of breast (principal)
CPT/HCPCS: 77063; 77067

== ENCOUNTER 2025-06-29 14:37 | Outpatient (CLI) | payer BC, SELFPAY ==
[2025-06-29 10:20] LABS: HCT 40.5 % (36.0-46.0); HGB 12.5 g/dL (11.2-15.7); MCH 26.2 pg (27.0-33.0); MCHC 30.9 % (32.0-36.0); MCV 85 fL (80-95); MPV 10.2 fL (8.0-11.0); Platelet Count 261 10^3/uL (130-400); RBC 4.77 10^6/uL (3.93-5.22); RDW 13.2 % (11.7-14.6); RDW-SD 41.1 fL; WBC 5.98 10^3/uL (4.4-10.8)
[2025-06-29 10:43] LABS: Hemoglobin A1C 6.0 % (<5.7)
[2025-06-29 11:55] LABS: Iron 63 ug/dL (50-170); Total Iron Binding Capacity 415 ug/dL (250-450); Transferrin Sat 15 % (15-50)
[2025-06-29 12:18] LABS: Anion Gap 6.5 mmol/L (3-11); BUN 14 mg/dL (7-18); CO2 29.5 mmol/L (21.0-32.0); Calcium 9.2 mg/dL (8.5-10.1); Calculated LDL 113 mg/dL (<100); Chloride 103 mmol/L (98-107); Cholesterol 171 mg/dL (<200); Estimated GFR 89.71 (mL/min/1.73m2); Ferritin 43 ng/mL (8-252); Glucose 96 mg/dL (74-106); HDL Cholesterol 41 mg/dL (>or=50); Potassium 4.3 mmol/L (3.5-5.1); Sodium 139 mmol/L (136-145); TSH (W/Ref FT4) 4.28 uIU/mL (0.36-3.74); Triglyceride 85 mg/dL (<150); Vitamin B12 339 pg/mL (193-986)
[2025-06-30 09:13] LABS: Lab Add On Test DONE
== END 2025-06-29 14:38 | disposition home or self-care (01) ==
LOC: LBO 14:41
PROVIDERS: PCP Nurse Practitioner Family; Visit Provider Nurse Practitioner Family
DX: D50.9 Iron deficiency anemia, unspecified (principal); I10 Essential (primary) hypertension; R73.03 Prediabetes
CPT/HCPCS: 36415; 80048; 80061; 85027; 86376; 82607; 82728; 83036; 83540; 83550; 84439; 84443